=== PATIENT | female | born 1990 | race Caucasian/White ===

== ENCOUNTER 2017-01-25 11:55 | Outpatient (CLI) | payer OTHER ==
[~2017-01-25 11:55] MED LIST changes: -DOXY100C2 PO; -LINA1CAP2 PO; -MTR600X PO; -PANT40TA PO; -PRT/20 PO
[2017-01-25] MEDS ORDERED: LACTATED RINGER'S 1000ML 1,000 ML IV SCH (12:26)
[2017-01-25 13:05] LABS: BASO % 0.1 %; BASO ABS # 0.02 K/uL (0-0.2); EOS % 0.3 %; HEMATOCRIT 38.7 % (37-47); IG% 0.4 %; LYMPH % 12.8 %; LYMPH ABS # 1.95 K/uL (1.2-3.4); MEAN CELL VOLUME 80.8 fL (80-100); MEAN CORPUSCULAR HEMOGLOBIN 27.1 pg (25-34); MEAN PLATELET VOLUME 10.9 fL (7.4-10.4); MONO % 7.6 %; NEUT % 78.8 %; PLATELET COUNT 223 K/uL (130-400); RED BLOOD COUNT 4.79 M/uL (4.2-5.4); WHITE BLOOD COUNT 15.19 K/uL (4.8-10.8)
[2017-01-25 13:14] LABS: INR 0.9 (0.9-1.1); PROTHROMBIN TIME (PATIENT) 9.8 SECONDS (9.0-12.0)
[2017-01-25 13:25] LABS: COMPLETE YES; MEAN CORPUSCULAR HGB CONC 33.6 g/dl (32-36)
[2017-01-25 13:26] LABS: ALT/SGPT 15 U/L (12-78); AST/SGOT 25 U/L (15-37); BLOOD UREA NITROGEN 10 mg/dl (7-18); BUN/CREATININE RATIO 17.4 (10-20); CALCIUM 8.8 mg/dl (8.5-10.1); CARBON DIOXIDE 21 mmol/L (21-32); CHLORIDE 109 mmol/L (98-107); CREATININE 0.57 mg/dl (0.60-1.20); GLUCOSE 77 mg/dl (70-99); SODIUM 141 mmol/L (136-145); URIC ACID 5.5 mg/dl (2.6-7.2)
[2017-01-25] MEDS ORDERED: PRT/20 PO (14:58)
[2017-01-31] MEDS ORDERED: MTR600X PO (07:59)
== END 2017-01-25 14:53 | disposition home or self-care (01) ==
LOC: C.OPB 11:55 → C.LD 11:55 → C.OPB 14:53
PROVIDERS: ATTEND Obstetrics & Gynecology
DX: O99.89 Other specified diseases and conditions complicating pregnancy, childbirth and the puerperium (principal); R03.0 Elevated blood-pressure reading, without diagnosis of hypertension; O99.213 Obesity complicating pregnancy, third trimester; Z3A.36 36 weeks gestation of pregnancy

== ENCOUNTER → 2017-01-25 | Outpatient (CLI) | payer OTHER ==
[~2017-01-25] MED LIST: DOXY100C2 PO; LINA1CAP2 PO; MTR600X PO; NITR-5 PO; ONDA4TAB46 PO; PANT40TA PO; PRENTAB26 PO; PRT/20 PO
[2017-01-26 16:09] LABS: URINE TOTAL PROTEIN 5.8 mg/dl (0-11.9)
--- NOTE | 2017-03-30 06:12 | CODING QUERY NO DIAGNOSIS ---
TREATMENT RENDERED WITHOUT A DIAGNOSIS To promote full compliance with coding requirements relating to patient care, physician participation is requested in all cases of hcc coders uncertainty. Please assist us with providing a diagnosis/symptom for the test(s) below: A diagnosis/symptom was not documented on your Order. A valid diagnosis/symptom is required to bill all insurances. Please remember that we are unable to code a diagnosis of rule out, probable, possible, questionable, or suspected. Tests that require a diagnosis: DOS: 01/26/17 * TOTAL PROTEIN 24 HOUR URINE DIAGNOSIS: Provider Signature: Date: Thank you Lynsey Grimaldo [employer] Once completed, please kindly fax back to [phone] For questions please call [phone]
== END | disposition home or self-care (01) ==
LOC: C.LABSPEC 09:34
PROVIDERS: ATTEND Obstetrics & Gynecology
DX: Z01.89 Encounter for other specified special examinations (principal)

== ENCOUNTER 2017-01-27 22:59 | Inpatient (IN) | payer OTHER ==
[~2017-01-27] VITALS: Ht 175.3 cm; Wt 131.8 kg
[~2017-01-27 22:59] MED LIST changes: -NITR-5 PO; -ONDA4TAB46 PO; +PRT/20 PO
[2017-01-27] MEDS ORDERED: LACTATED RINGER'S 1000ML 1,000 ML IV PRN (23:04)
[2017-01-27] MEDS ORDERED: DINOPROSTONE 10 MG INSERT PV STA (23:07)
[2017-01-27 23:33] LABS: HEMATOCRIT 34.9 % (37-47); MEAN CELL VOLUME 80.4 fL (80-100); MEAN CORPUSCULAR HEMOGLOBIN 28.3 pg (25-34); MEAN CORPUSCULAR HGB CONC 35.2 g/dl (32-36); PLATELET COUNT 216 K/uL (130-400); RED BLOOD COUNT 4.34 M/uL (4.2-5.4); WHITE BLOOD COUNT 14.81 K/uL (4.8-10.8)
[2017-01-27] MEDS ORDERED: PANT40TA PO (23:43)
[2017-01-27 23:44] VITALS: Ht 175.3 cm; Wt 131.8 kg
[2017-01-27 23:57] LABS: BUN/CREATININE RATIO 12.6 (10-20); CALCIUM 8.7 mg/dl (8.5-10.1); CREATININE 0.84 mg/dl (0.60-1.20); POTASSIUM 3.7 mmol/L (3.5-5.1)
[2017-01-28] LABS: ALB/GLOB RATIO 0.7 (0.9-2)
--- NOTE | 2017-01-28 00:50 | HISTORY & PHYSICAL EXAMINATION ---
DATE OF ADMISSION: 01/27/2017 HISTORY OF PRESENT ILLNESS: The patient is a 26-year-old, G1, P0, due date is 02/16/2017, making it 37 weeks' and 1 day today. The patient is here for admission because of mild preeclampsia. She was seen for elevated blood pressures. A 24-hour urine was done 375 mg. Decision was therefore made to admit the patient for induction of labor. COURSE: Has been unremarkable except for elevated blood pressure and preeclampsia. Today, on admission, she complains of headache. She however has no nausea, shortness of breath, chills or visual changes. She also does not have any right upper quadrant pain on admission today. Blood pressure on admission was in the 140s/90s. She has no recorded blood pressure greater than 160/105 since admission. LABORATORIES: Blood type B positive, antibody negative. GBS is positive. GC chlamydia is negative, rubella immune. PAST MEDICAL HISTORY: The patient has a history of infectious mono as well as fracture of bones. PAST SURGICAL HISTORY: The patient has a history of tonsillectomy and cholecystectomy as well as a colonoscopy. ALLERGIES: No known drug allergies. SOCIAL HISTORY: The patient denies tobacco, drug or alcohol use. PHYSICAL EXAMINATION: GENERAL: Well-developed, well-nourished and obese white female in no acute distress. HEART: S1, S2, regular rhythm and rate. LUNGS: Clear to auscultation bilaterally. ABDOMEN: Gravid. Bedside ultrasound shows cephalic presentation. EXTREMITIES: No cyanosis, clubbing or edema. ASSESSMENT AND PLAN: A 26-year-old, G1, P0 with mild preeclampsia. The patient has been admitted for induction because of preeclampsia. On admission she has headaches, but no other preeclampsia symptoms. She denies headache, visual changes, right upper quadrant pain or shortness of breath. Cervical exam is fingertip, thick and closed; therefore started induction with cervical ripening. [facility]
[2017-01-28] MEDS ORDERED: LACTATED RINGER'S 1000ML 1,000 ML IV PRN (11:40)
[2017-01-28] MEDS ORDERED: LACTATED RINGER'S 1000ML 500 ML IV PRN ×2 (11:40→19:08)
[2017-01-28] MEDS ORDERED: OXYTOCIN 30 UNITS/500ML NSS IV PRN (11:45)
[2017-01-28] MEDS ORDERED: PENICILLIN G POTASSIUM IV 6 MU in DEXTROSE 5% 250ML 250 ML IV ONE (11:45)
[2017-01-28] MEDS: LACTATED RINGER'S 1000ML 1,000 ML IV SCH ×2 (12:41→18:30)
[2017-01-28] MEDS: PENICILLIN G POTASSIUM IV 3 MU in DEXTROSE 5% 100ML 100 ML IV PRN ×2 (16:38→20:41)
[2017-01-28] MEDS ORDERED: EpHEDrine SULFATE INJ 50 MG/ML AMP ONE (17:44)
[2017-01-28] MEDS ORDERED: BUPIVACAINE 0.25% 30 ML VIAL ONE (17:44)
[2017-01-28] MEDS ORDERED: FENTANYL CITRATE INJ 50 MCG/1 ML 2 ML VIAL ONE (17:45)
[2017-01-28] MEDS ORDERED: FENTANYL 2MCG/ML ROPIV 1.25MG/ML 100ML BAG EPI ONE (17:46)
[2017-01-28] MEDS ORDERED: NALOXONE HCL INJ 1 MG in SODIUM CHLORIDE 0.9% 1000ML 1,000 ML IV PRN (19:08)
[2017-01-28] MEDS ORDERED: DiphenhydrAMINE HCL 50 MG/ML VIAL IV PRN (19:15)
[2017-01-28] MEDS ORDERED: EpHEDrine SULFATE INJ 50 MG/ML AMP IV PRN (19:15)
[2017-01-28] MEDS ORDERED: NALBUPHINE HCL INJ 10 MG/ML AMP IV PRN (19:15)
[2017-01-28] MEDS ORDERED: NALOXONE HCL INJ 0.4 MG/1 ML VIAL/CARP IV PRN (19:15)
[2017-01-28] MEDS: FENTANYL 2MCG/ML ROPIV 1.25MG/ML 100ML BAG EPI PRN (20:38)
[2017-01-29] MEDS: PENICILLIN G POTASSIUM IV 3 MU in DEXTROSE 5% 100ML 100 ML IV PRN ×3 (00:36→08:03)
[2017-01-29] MEDS: LACTATED RINGER'S 1000ML 1,000 ML IV SCH (01:41)
[2017-01-29] MEDS: FENTANYL 2MCG/ML ROPIV 1.25MG/ML 100ML BAG EPI PRN ×4 (03:15→07:57)
[2017-01-29] MEDS ORDERED: LACTATED RINGER'S 1000ML 250 ML IV STA (06:39)
[2017-01-29] MEDS ORDERED: NURSING VERBAL MED ORDER ONE ×2 (06:45)
[2017-01-29] MEDS ORDERED: BENZOCAINE 20% AER SPR 82.5 GM CAN EXT PRN (09:00)
[2017-01-29] MEDS ORDERED: SUPERCREAM 0.870 % 15GM JAR EXT PRN (09:00)
[2017-01-29] MEDS ORDERED: HYDROCORTISONE ACETATE 25 MG SUPP PR PRN (09:00)
[2017-01-29] MEDS ORDERED: DIPHTHERIA/TETANUS/PERTUSSIS 0.5 ML SYR/VIAL IM. ONE (09:00)
[2017-01-29] MEDS ORDERED: ACETAMINOPHEN/CODEINE 300/30MG TAB PO PRN ×2 (09:00)
[2017-01-29] MEDS ORDERED: ACETAMINOPHEN 325 MG TAB PO PRN (09:00)
[2017-01-29] MEDS ORDERED: LANOLIN OINT EXT PRN ×2 (09:00)
[2017-01-29] MEDS ORDERED: OXYTOCIN 30 UNITS/500ML NSS IV PRN (09:00)
[2017-01-29] MEDS ORDERED: MEASLES, MUMPS & RUBELLA VIRUS VIAL SQ. ONE (09:00)
--- NOTE | 2017-01-29 10:27 | DELIVERY SUMMARY ---
DATE OF OPERATION: 01/29/2017 TIME OF DELIVERY: 08:22 a.m. TIME OF DELIVERY OF PLACENTA: 08:40 a.m. DETAILS OF DELIVERY: The patient was found to be fully dilated and desired to push. She pushed for about 40 minutes and delivered the head without difficulty. Shoulders were delivered with minimal traction and baby was handed off to the mother where mouth and nose were suctioned. Cord was clamped x2 and cut. It was a 3-vessel cord. Then cord blood was obtained. The vagina and perineum were checked for lacerations. There was a second degree perineal laceration at the posterior fourchette, which was confirmed with a rectal exam. Good sphincter tone was noted and gloves were changed. This laceration was repaired with 2-0 Vicryl in a running locked fashion bringing the vaginal mucosa together, perineal body muscles and bulbocavernosus muscles together and the skin in a subcuticular fashion. Excellent hemostasis was achieved. Rectal exam was repeated and no sutures were felt and again good sphincter tone was noted. Gloves were changed and the rest of the vagina was intact. The the placenta was found in the vagina and delivered spontaneously as intact and complete. Uterus was explored and found to be empty. Lower segment was cleared of all clots and debris. Fundus was firm. EBL was 500. Mother and baby tolerated the procedure well. Baby was a viable female , Apgars 8/9. Weight is pending. No complications happened. I was present during whole procedure. At the end of the procedure, sponge, needle and instrument counts were correct x2. I attest to the content of the Intraoperative Record and any orders documented therein. Any exceptions are noted below. TERESITA
[2017-01-29] MEDS: IBUPROFEN 600 MG TAB PO PRN ×3 (10:45→21:10)
--- NOTE | 2017-01-29 10:58 | Anesthesia Procedure Note ---
Anesthesia Epidural Removal Nt Date & Time Jan 29, 2017 at 10:57 Notes Mental Status: alert / awake / arousable, participated in evaluation Nausea / Vomiting: adequately controlled Pain: adequately controlled Airway Patency, RR, SpO2: stable & adequate BP & HR: stable & adequate Hydration State: stable & adequate Neuraxial Anesthesia: was administered Anesthetic Complications: no major complications apparent, pt satisfied with anesthetic care Epidural: removed without complications, with tip intact Notes: Pt resting comfortably in bed. Denies any discomfort. Epidural removed without complications/ tip intact. Pt tolerated well.
[2017-01-29 11:15] VITALS: BP 147/95; PULSE 104; TEMP 36.8; O2SAT 98
[2017-01-29 15:45] VITALS: BP 124/79; PULSE 87; TEMP 36.6
[2017-01-29 19:35] VITALS: BP 137/86; PULSE 91; TEMP 36.9
[2017-01-29] MEDS: DOCUSATE SODIUM 100 MG CAP PO SCH (21:10)
[2017-01-29 23:45] VITALS: BP 136/89; PULSE 87; TEMP 36.8
[2017-01-30] MEDS: IBUPROFEN 600 MG TAB PO PRN ×6 (03:47→23:59)
[2017-01-30 04:30] VITALS: BP 133/86; PULSE 96; TEMP 36.7
[2017-01-30 07:38] LABS: HEMATOCRIT 28.8 % (37-47); MEAN CELL VOLUME 81.4 fL (80-100); MEAN CORPUSCULAR HEMOGLOBIN 27.4 pg (25-34); MEAN CORPUSCULAR HGB CONC 33.7 g/dl (32-36); MEAN PLATELET VOLUME 10.7 fL (7.4-10.4); PLATELET COUNT 192 K/uL (130-400); RED BLOOD COUNT 3.54 M/uL (4.2-5.4)
[2017-01-30] MEDS: FERROUS SULFATE 325 MG TAB PO SCH (08:11)
[2017-01-30] MEDS: PRENATAL VITAMIN TAB PO SCH (08:11)
[2017-01-30] MEDS: DOCUSATE SODIUM 100 MG CAP PO SCH ×2 (08:11→20:11)
[2017-01-30 08:12] LABS: BUN/CREATININE RATIO 17.9 (10-20); CALCIUM 8.2 mg/dl (8.5-10.1); CREATININE 0.84 mg/dl (0.60-1.20); POTASSIUM 3.6 mmol/L (3.5-5.1)
[2017-01-30 08:14] LABS: ALB/GLOB RATIO 0.6 (0.9-2)
[2017-01-30 08:20] VITALS: BP 143/92; PULSE 86; TEMP 36.6; O2SAT 98
--- NOTE | 2017-01-30 09:35 | OB/GYN Progress Note ---
STEWARD/STEWARDESS DECK Progress Note Date of Service Jan 30, 2017. Subjective conversation w/ patient, physical exam Ambulation: ambulating normally Voiding: no voiding problems Passing Gas: Yes Diet Tolerance: Regular Diet Lochia: Moderate Feeding Type: Breast Feeding Review of Systems Constitutional: No chills, No fatigue, No fever, No problem reported, No sweats , No weakness, No weight loss Respiratory: No cough, No dyspnea at rest, No dyspnea on exertion, No hemoptysis, No problem reported, No shortness of breath, No sputum, No wheezing Cardiac: No PND, No chest pain, No claudication, No edema, No orthopnea, No palpitations, No problem reported Breast: No breast lump, No breast pain, No change in shape, No nipple discharge , No problem reported, No see HPI Abdomen: No GI bleeding, No constipation, No diarrhea, No nausea, No pain, No problem reported, No vomiting Female : No abnormal vaginal bleeding, No dysuria, No hematuria, No incontinence, No problem reported, No see HPI, No urinary frequency, No vaginal discharge Objective Vital Signs Date Time Temp Pulse Resp B/P Pulse Ox O2 Delivery O2 Flow Rate FiO2 01/30/17 04:30 36.7 96 20 133/86 Room Air 01/29/17 23:45 Room Air 01/29/17 23:45 36.8 87 20 136/89 Room Air 01/29/17 19:35 36.9 91 20 137/86 Room Air 01/29/17 15:45 Room Air 01/29/17 15:45 36.6 87 16 124/79 Room Air 01/29/17 11:15 Room Air 01/29/17 11:15 36.8 104 20 147/95 98 Room Air Physical Exam General Appearance: WELL-APPEARING, WD/WN Respiratory/Chest: chest non-tender, lungs clear, normal breath sounds, no respiratory distress, no accessory muscle use Cardiovascular: regular rate, rhythm, no edema, no gallop, no JVD, no murmur Abdomen: normal bowel sounds, non tender, soft, no organomegaly, no pulsatile mass Fundus: Firm Extremities: normal range of motion, non-tender, normal inspection, no pedal edema, no calf tenderness Laboratory Results Last 24 Hours Test 01/30/17 07:20 White Blood Count 15.20 K/uL Red Blood Count 3.54 M/uL Hemoglobin 9.7 g/dL Hematocrit 28.8 % Mean Corpuscular Volume 81.4 fL Mean Corpuscular Hemoglobin 27.4 pg Mean Corpuscular Hemoglobin Concent 33.7 g/dl RDW Standard Deviation 42.8 fL RDW Coefficient of Variation 14.5 % Platelet Count 192 K/uL Mean Platelet Volume 10.7 fL Sodium Level 143 mmol/L Potassium Level 3.6 mmol/L Chloride Level 111 mmol/L Carbon Dioxide Level 23 mmol/L Anion Gap 9.0 mmol/L Blood Urea Nitrogen 15 mg/dl Creatinine 0.84 mg/dl Est Creatinine Clear Calc Drug Dose 146.8 ml/min Estimated GFR () 110.4 Estimated GFR (Non- 95.3 BUN/Creatinine Ratio 17.9 Random Glucose 75 mg/dl Calcium Level 8.2 mg/dl Total Bilirubin 0.2 mg/dl Aspartate Amino Transf (AST/SGOT) 28 U/L Alanine Aminotransferase (ALT/SGPT) 13 U/L Alkaline Phosphatase 82 U/L Total Protein 5.1 gm/dl Albumin 2.0 gm/dl Globulin 3.1 gm/dl Albumin/Globulin Ratio 0.6 Assessment and Plan Day Number: 1 Continue Routine Care: PPD #1 pt doing well no complaints d/c home tomorrow
[2017-01-30 15:30] VITALS: BP 139/87; PULSE 87; TEMP 37; O2SAT 98; O2SAT 99
[2017-01-30] MEDS ORDERED: BISACODYL 5 MG TABEC PO SCH (20:00)
[2017-01-31] VITALS: BP 143/91; PULSE 83; TEMP 36.8; O2SAT 100
[2017-01-31] MEDS: IBUPROFEN 600 MG TAB PO PRN (05:45)
[2017-01-31] MEDS ORDERED: BISACODYL 10 MG SUPP PR PRN (07:00)
[2017-01-31 07:30] VITALS: BP 139/86; PULSE 80; TEMP 36.8
[2017-01-31] MEDS ORDERED: MTR600X PO (07:59)
--- NOTE | 2017-01-31 07:59 | OB/GYN Progress Note ---
COLLECTOR OF [employer]QUARI[employer] SPECIMENS Progress Note Date of Service Jan 31, 2017. Subjective conversation w/ patient, physical exam Ambulation: ambulating normally Voiding: no voiding problems Passing Gas: Yes Diet Tolerance: Regular Diet Lochia: Small Feeding Type: Breast Feeding Pain: 2/10 Notes: Doing well, no concerns. Denies MTZ, changes in vision or abdominal pain. Pain well controlled. Lochia minimal. Would like to go home today. Objective Vital Signs Date Time Temp Pulse Resp B/P Pulse Ox O2 Delivery O2 Flow Rate FiO2 01/31/17 00:00 36.8 83 16 143/91 100 Room Air 01/31/17 00:00 100 Room Air 01/30/17 15:30 98 Room Air 01/30/17 15:30 37.0 87 18 139/87 99 Room Air 01/30/17 08:20 98 Room Air 01/30/17 08:20 36.6 86 16 143/92 98 Room Air Physical Exam General Appearance: WELL-APPEARING Respiratory/Chest: chest non-tender, lungs clear Cardiovascular: regular rate, rhythm Abdomen: normal bowel sounds, soft Fundus: Firm Extremities: normal range of motion, non-tender, + pedal edema Assessment and Plan Day Number: 2 Continue Routine Care: -D/C home today -F/U in 6 weeks.
--- NOTE | 2017-01-31 08:00 | Discharge Instructions ---
Discharge Instructions Date of Service Jan 31, 2017. Admission Reason for Admission: IUP Discharge Discharge Diagnosis / Problem: Vaginal Delivery Discharge Goals Goal(s): Routine recovery after delivery Medications Continue Dispensed Medications: supercream, dermaplast, tucks, lansinoh Activity Recommendations Activity Limitations: per Instructions/Follow-up section . Instructions / Follow-Up Instructions / Follow-Up ACTIVITY RECOMMENDATIONS: * Gradual return to full activity over the next 2-3 weeks. * No lifting - nothing heavier than baby over the next 2-3 weeks. * Do not engage in vigorous exercise, sexual activity or sports until cleared by your physician. * Do not drive or operate any motorized equipment until cleared by your physician. * You may shower/bathe daily. BREAST CARE: If you are not breast feeding: * Wear a supportive bra 24 hours a day for one to two weeks. * Avoid stimulating your breasts and nipples as much as possible during the first few weeks after delivery. * When taking a shower, have the warm water hit your back, not breasts. * When your breasts feel full, apply ice packs. Usually three to four times a day helps ease the discomfort. * Take a mild pain medication (Tylenol/Motrin) when you are uncomfortable. If breast feeding: * Use breast milk to lubricate nipples. Lansinoh cream may be used for sore nipples. You do not need to remove cream prior to breast feeding. If using a different brand of cream, check the label for directions regarding removal of cream prior to nursing. * Wear a supportive bra. * If having problems with breasts or breast feeding, call a micro[employer] consultant or your health care provider. EPISIOTOMY CARE: After delivery, if you have an episiotomy (stitches), the following steps will ease discomfort and aid healing. * For the first 24 hours after delivery, place ice packs next to your episiotomy to help reduce swelling. * After the first 24 hour-period, sitz baths, either portable or in the tub, are suggested. A shower with a shower arm sprayed over the episiotomy may be comforting. * Diane care should be done after each voiding and bowel movement. Squirt warm water from a plastic bottle over the perineum (region of the body between the anus and urinary opening) and pat dry. * Use Dermoplast to ease discomfort. Shake container. [place] directly over the episiotomy. * Place a Tucks on a clean sanitary pad next to your episiotomy. OVER THE COUNTER MEDICATION: * For discomfort or pain, you may use Acetaminophen (Tylenol), Ibuprofen (Advil ), or Naproxen (Aleve) following the package directions. * For constipation you may use Colace following the package directions. SPECIAL CARE INSTRUCTIONS: When you are discharged from the hospital, it is important for you to follow the instructions listed below: * During the first week at home, you should be able to care for yourself and your baby. In addition, the usual light household activities are encouraged. * Limit your activities to the way you feel. Do not try to clean the house or move furniture. Be sensible. * If you actively engage in sports and have done so up until the time of your delivery, you may resume these activities as soon as you feel able. This may take up to one month or even longer. Use good judgment. * Continue to take your vitamins for at least six weeks after the of your baby. * Your diet need not be limited unless you were on a special diet before your delivery. Breast-feeding mothers need around 2500 calories per day and at least 64-80 ounces of fluid per day (8 to 10 glasses). * You should eat foods from the four major food groups. Crash diets or fad diets are to be avoided. Eating lean meats, fresh fruits and vegetables, low-fat dairy products, high fiber foods and a regular exercise program, will help you get back to your pre- weight without putting your health at risk. * Constipation is sometimes a problem after delivery. Take a mild laxative as needed. If breast feeding, Milk of Magnesia is acceptable to use. You may use a suppository or Fleets enema if no episiotomy. * A daily shower or tub bath is suggested. Be sure to thoroughly and gently dry the perineum. * A bloody vaginal discharge will usually continue until around four weeks post . A small amount of bleeding may continue for as long as six weeks. Vaginal discharge changes from the bright red bleeding after delivery to pink then brownish and finally yellowish-pink before becoming white and disappearing. * Bleeding may increase with activity. Your first period may come in 4-8 weeks. If you are breast feeding, your period may be delayed even longer. * [place] (sex) can begin whenever both you and your partner feel comfortable and do not have any form of genital infection. It is recommended that you wait until after your return appointment and discuss with your physician. If you have questions, please talk to your health care practitioner. A condom should be used to prevent infection and . * Foreplay, gentle intercourse and lubrication is very important the first several times to prevent pain. A water-based lubricant such as K-Y jelly or Astroglide may be used. * Tampons may be used six weeks after delivery. * Douching should be avoided for 6 weeks after delivery. * If you have RH negative blood and your baby is RH positive, you will receive RHOGAM by injection prior to discharge. The nurse will give you a card to keep with you that has the date and place that you received RHOGAM after delivery. * During your care, you had a Rubella screen done to check for the presence of rubella antibodies in your blood. If your test was negative, you will receive a Rubella vaccine prior to discharge. This vaccine may cause a fever, soreness at the injection site and flu-like symptoms. If these symptoms persist, notify your health care practitioner. is not advised for three months after a Rubella vaccine. There is a higher chance of having a baby with defects if conceived within three months of getting the vaccine. * If you were discharged 24 hours from delivery or before 48 hours: Visiting nurses will come to your home 48 hours after discharge to assess you and your baby. The visiting nurse will meet with you while you are in the hospital to arrange a time and get directions to your home. * Verbalizes understanding of car seat law as reviewed with patient nursing. * Car Seat hand-out given and reviewed with patient by nursing. * Shaken baby information reviewed with patient by nursing. Call you doctor if: * Heavy bleeding (saturating several pads an hour) or passing clots the size of your fist. * A fever >101 degrees F (38.3 degrees C) on two occasions four hours apart and/or chills. * Unusual pain in the pelvic or vaginal areas. * "Baby Blues" lasting longer than two weeks. If you have any questions or concerns, call your health care practitioner at . FOLLOW-UP VISIT: * Please call the office at to schedule a 6 week examination. It is important you keep this appointment. * It is important for you to make arrangements for either yearly or twice yearly check-ups thereafter. Current Hospital Diet Patient's current hospital diet: Regular OB Diet Discharge Diet Recommended Diet: Regular OB Diet Pending Studies Studies pending at discharge: no Medical Emergencies . Who to Call and When: Medical Emergencies: If at any time you feel your situation is an emergency, please call 911 immediately. . Non-Emergent Contact Non-Emergency issues call your: Primary Care Provider, Business Support . . "Provider Documentation" section prepared by Pedro Summers. VTE Core Measure Inpt VTE Proph given/why not?: Treatment not indicated
[2017-01-31] MEDS: FERROUS SULFATE 325 MG TAB PO SCH (08:12)
[2017-01-31] MEDS: PRENATAL VITAMIN TAB PO SCH (08:12)
[2017-01-31] MEDS: DOCUSATE SODIUM 100 MG CAP PO SCH (08:12)
[2017-01-31 11:00] VITALS: BP_DIAS 86; PULSE 80; TEMP 36.8
== END 2017-01-31 11:15 | disposition home or self-care (01) | DRG 774 ==
LOC: C.LD 22:59 → C.OBG 01-29 13:04
PROVIDERS: ADMIT Obstetrics & Gynecology; ATTEND Obstetrics & Gynecology
PROC: 3E033VJ Introduction of Other Hormone into Peripheral Vein, Percutaneous Approach (ICD-10-PCS; 2017-01-28)
PROC: 10E0XZZ Delivery of Products of Conception, External Approach (ICD-10-PCS; principal; 2017-01-29)
PROC: 0KQM0ZZ Repair Perineum Muscle, Open Approach (ICD-10-PCS; principal; 2017-01-29)
DX: O14.03 Mild to moderate pre-eclampsia, third trimester (principal); O70.1 Second degree perineal laceration during delivery; Z3A.37 37 weeks gestation of pregnancy; Z37.0 Single live birth

== ENCOUNTER 2017-04-22 21:21 | Emergency (ER) | payer OTHER ==
[~2017-04-22] VITALS: Ht 175.3 cm; Wt 114.2 kg
[~2017-04-22 21:21] MED LIST changes: +MTR600X PO; +PANT40TA PO; -PRT/20 PO
[2017-04-22 21:25] VITALS: TEMP 36.7; Ht 175.3 cm; Wt 114.2 kg
[2017-04-22] MEDS ORDERED: SODIUM CHLORIDE 0.9% 1000ML 1,000 ML IV ONE (21:43)
[2017-04-22] MEDS ORDERED: SODIUM CHLORIDE 0.9% 1000ML 1,000 ML IV STA (21:43)
[2017-04-22] MEDS ORDERED: LINA1CAP2 PO (22:04)
[2017-04-22 22:09] LABS: URINE APPEARANCE CLEAR (CLEAR); URINE BILIRUBIN NEG (NEG); URINE COLOR YELLOW; URINE NITRITE NEG (NEG); URINE SPECIFIC GRAVITY 1.023 (1.000-1.030); UROBILINOGEN NEG (NEG)
[2017-04-22 22:12] LABS: BASO % 0.3 %; BASO ABS # 0.04 K/uL (0-0.2); COMPLETE YES; EOS % 0.9 %; HEMATOCRIT 42.5 % (37-47); IG% 0.2 %; LYMPH % 28.5 %; LYMPH ABS # 4.01 K/uL (1.2-3.4); MANUAL MICROSCOPIC REQUIRED? NO; MEAN CELL VOLUME 80.8 fL (80-100); MEAN CORPUSCULAR HEMOGLOBIN 26.8 pg (25-34); MEAN CORPUSCULAR HGB CONC 33.2 g/dl (32-36); MEAN PLATELET VOLUME 10.3 fL (7.4-10.4); MONO % 10.2 %; NEUT % 59.9 %; PLATELET COUNT 315 K/uL (130-400); RED BLOOD COUNT 5.26 M/uL (4.2-5.4); REVIEW REQ? NO; WHITE BLOOD COUNT 14.07 K/uL (4.8-10.8)
[2017-04-22 22:20] LABS: ALT/SGPT 33 U/L (12-78); BLOOD UREA NITROGEN 12 mg/dl (7-18); BUN/CREATININE RATIO 13.8 (10-20); CARBON DIOXIDE 25 mmol/L (21-32); CHLORIDE 107 mmol/L (98-107); CREATININE 0.85 mg/dl (0.60-1.20); GLUCOSE 80 mg/dl (70-99); POTASSIUM 3.7 mmol/L (3.5-5.1); SODIUM 142 mmol/L (136-145)
[2017-04-22 22:21] LABS: CALCIUM 9.3 mg/dl (8.5-10.1)
[2017-04-22 22:24] LABS: ALKALINE PHOSPHATASE 79 U/L (45-117); AST/SGOT 22 U/L (15-37)
[2017-04-22 22:28] LABS: PREG INTERNAL NEGATIVE QC NEG CLEAR BACKGROUND; PREG INTERNAL POSITIVE QC POS CONTROL LINE
[2017-04-22] MEDS ORDERED: DOXY100C2 PO (23:25)
[2017-04-22] MEDS ORDERED: DOXYCYCLINE HYCLATE 100 MG CAP PO ONE (23:30)
[2017-04-22 23:40] VITALS: BP 127/86; PULSE 89; O2SAT 98
--- NOTE | 2017-04-22 23:56 | EMERGENCY ROOM VISIT NOTE ---
History Report prepared by [place]: Pedro Morrell Under the Supervision of: Dr. Sacha Cabrera M.D. First contact with patient: 21:28 Chief Complaint: PELVIC PAIN Stated Complaint: CRAMPING,VAGINAL PAIN History of Present Illness The patient is a 26 year old female who presents to the Emergency Room with complaints of constant vaginal discomfort beginning about 10 days ago. The patient states that she also has lower back pain, cramping abdominal pain, white and normal vagina discharge, and nausea. She denies vaginal bleeding, trauma, fever, chills, and vomiting. She reports that she was having sexual intercourse with her a week ago, and she was in pain the entire time. The patient states that she is 3 months , and the last time she saw her BARREL PAINTER was 6 weeks . She reports that she had a slight vaginal tear during , and when she followed up with her BARREL PAINTER, her uterus had not returned to normal size. The patient notes that she called her BARREL PAINTER this morning; they said she could wait until Monday for an appointment, or she could go to the ER. She states that she has a history of preeclampsia and a cholecystectomy. Source of History: patient Onset: about 10 days ago Position: other (vagina) Quality: other (discomfort) Timing: constant Associated Symptoms: + nausea, + abdominal pain, + back pain, No fevers, No chills, No vomiting Note: Associated symptoms: white and normal vagina discharge She denies vaginal bleeding and trauma Review of Systems See HPI for pertinent positives & negatives. A total of 10 systems reviewed and were otherwise negative. Past Medical & Surgical Medical Problems: (1) Elevated blood pressure affecting in third trimester, antepartum (2) Gastroesophageal reflux disease (3) Gastroparesis (4) Obesity affecting in third trimester (5) Preeclampsia Old medical records were reviewed. Nurse's notes were reviewed and I agree with. Family History Cancer Heart disease Hypertension Social History Smoking Status: Current Every Day Smoker Alcohol Use: occasionally Drug Use: none Marital Status: single Occupation Status: employed Current/Historical Medications Scheduled Doxycycline Hyclate (Vibramycin), 100 MG PO BID Linaclotide (Linzess), 290 MCG PO DAILY Pantoprazole (Protonix), 40 MG PO DAILY Allergies Coded Allergies: No Known Allergies (Unverified , 01/30/17) Physical Exam Vital Signs Date Time Temp Pulse Resp B/P (MAP) Pulse Ox O2 Delivery O2 Flow Rate FiO2 04/22/17 23:40 89 18 127/86 98 04/22/17 21:25 36.7 96 18 131/93 97 Room Air Physical Exam General: Well developed well nourished in no acute distress, breathing comfortably on room air. Normal speech, non-ill appearing, young female. HEENT: Normal cephalic atraumatic. Pupils are equal round and reactive to light. Extraocular movements are intact. Oropharynx is pink with moist mucous membranes. No swelling of the mouth lips or tongue. Neck: Supple with a midline trachea. No meningeal signs or stiffness, no JVD or bruits. No Stridor. Chest: Clear to auscultation bilaterally. No wheezes or rhonchi. No increased work of breathing. Heart: regular rate and rhythm. Abdomen: Soft, nondistended without rebound guarding or rigidity. Mild suprapubic tenderness to palpation Extremities: No cyanosis clubbing or edema. No calf tenderness or assymetry Spine/Back. Non tender to palpation. No CVA tenderness Skin: Good turgor without rashes. Neurologic exam: Cranial nerves two through 12 are intact. Motor and sensation are intact and symmetrical throughout. Pelvic (performed in the presence of a female nurse telephone operator receptionist): Normal external genitalia, no cervical lesions or discharge, minimal tenderness to palpation of the cervix Medical Decision & Procedures Laboratory Results 04/22/17 21:50 Red Blood Count 5.26, Mean Corpuscular Volume 80.8, Mean Corpuscular Hemoglobin 26.8, Mean Corpuscular Hemoglobin Concent 33.2, Mean Platelet Volume 10.3, Neutrophils (%) (Auto) 59.9, Lymphocytes (%) (Auto) 28.5, Monocytes (%) (Auto) 10.2, Eosinophils (%) (Auto) 0.9, Basophils (%) (Auto) 0.3, Neutrophils # (Auto ) 8.43, Lymphocytes # (Auto) 4.01, Monocytes # (Auto) 1.44, Eosinophils # (Auto ) 0.12, Basophils # (Auto) 0.04 04/22/17 21:50 Test 04/22/17 21:50 White Blood Count 14.07 K/uL (4.8-10.8) Red Blood Count 5.26 M/uL (4.2-5.4) Hemoglobin 14.1 g/dL (12.0-16.0) Hematocrit 42.5 % (37-47) Mean Corpuscular Volume 80.8 fL (80-100) Mean Corpuscular Hemoglobin 26.8 pg (25-34) Mean Corpuscular Hemoglobin Concent 33.2 g/dl (32-36) Platelet Count 315 K/uL (130-400) Mean Platelet Volume 10.3 fL (7.4-10.4) Neutrophils (%) (Auto) 59.9 % Lymphocytes (%) (Auto) 28.5 % Monocytes (%) (Auto) 10.2 % Eosinophils (%) (Auto) 0.9 % Basophils (%) (Auto) 0.3 % Neutrophils # (Auto) 8.43 K/uL (1.4-6.5) Lymphocytes # (Auto) 4.01 K/uL (1.2-3.4) Monocytes # (Auto) 1.44 K/uL (0.11-0.59) Eosinophils # (Auto) 0.12 K/uL (0-0.5) Basophils # (Auto) 0.04 K/uL (0-0.2) RDW Standard Deviation 40.7 fL (36.4-46.3) RDW Coefficient of Variation 13.7 % (11.5-14.5) Immature Granulocyte % (Auto) 0.2 % Immature Granulocyte # (Auto) 0.03 K/uL (0.00-0.02) Urine Color YELLOW Urine Appearance CLEAR (CLEAR) Urine pH 5.0 (4.5-7.5) Urine Specific Margie 1.023 (1.000-1.030) Urine Protein NEG (NEG) Urine Glucose (UA) NEG (NEG) Urine Ketones NEG (NEG) Urine Occult Blood NEG (NEG) Urine Nitrite NEG (NEG) Urine Bilirubin NEG (NEG) Urine Urobilinogen NEG (NEG) Urine Leukocyte Esterase NEG (NEG) Anion Gap 10.0 mmol/L (3-11) Est Creatinine Clear Calc Drug Dose 134.1 ml/min Estimated GFR () 108.8 Estimated GFR (Non- 93.9 BUN/Creatinine Ratio 13.8 (10-20) Calcium Level 9.3 mg/dl (8.5-10.1) Total Bilirubin 0.4 mg/dl (0.2-1) Direct Bilirubin < 0.1 mg/dl (0-0.2) Aspartate Amino Transf (AST/SGOT) 22 U/L (15-37) Alanine Aminotransferase (ALT/SGPT) 33 U/L (12-78) Alkaline Phosphatase 79 U/L (45-117) Total Protein 7.3 gm/dl (6.4-8.2) Albumin 3.8 gm/dl (3.4-5.0) Lipase 191 U/L (73-393) Human Chorionic Gonadotropin, Qual NEG (NEG) Laboratory studies as stated above per my review. Medications Administered Medications (Trade) Dose Ordered Sig/Nadiya Route Start Time Stop Time Status Last Admin Dose Admin Sodium Chloride 1,000 ml @ 999 mls/hr Q1H1M STAT IV 04/22/17 21:43 04/22/17 22:43 DC 04/22/17 22:06 999 MLS/HR Sodium Chloride 1,000 ml @ 200 mls/hr Q5H ONCE IV 04/22/17 21:43 04/22/17 23:46 DC 04/22/17 22:07 200 MLS/HR Doxycycline Hyclate (Vibramycin Cap) 100 mg ONE ONCE PO 04/22/17 23:30 04/22/17 23:31 DC 04/22/17 23:30 100 MG ED Course 7: Past medical records reviewed. The patient was evaluated in room B05, and a complete history and physical examination were performed. 2143: Ordered Sodium Chloride 1000 ml @ 200 mls/hr IV, Sodium Chloride 1000 ml @ 999 mls/hr IV 2249: I performed a pelvic exam in the presence of a female nurse telephone operator receptionist. Please refer to the physical exam for more information. 2319: I discussed the patients case with Jessica Cowan BARREL PAINTER. He suggested that the patient be given doxycycline and then sent home 2330: Ordered Vibramycin Cap 100mg PO 2333: Upon reevaluation, the patient is resting and in no distress. I discussed the results and treatment plan with her. She verbalized agreement of the treatment plan. The patient was discharged home. Medical Decision Differential diagnosis includes: UTI, , infection, post complications. Medication Reconciliation: I attest that I have personally reviewed the patient' s current medication list. Blood Pressure Screening: Patient was found to have a slightly elevated blood pressure due to circumstances. I do not believe that the patient requires hypertension monitoring. This patient comes in as described above. She's had some pelvic pain.. She is 3 months she's had no significant discharge. She looks well on exam her abdomen is benign. Blood work and urine was obtained a urinalysis does not suggest UTI with a backup culture pending. Her white count is mildly elevated. She has no acute electrolyte or metabolic abnormalities. She is not . On speculum exam, She has no significant discharge. She is minimally tender the cervix. I did discuss case with Dr. Summers recommends putting her on doxycycline for possible antibiotic coverage although I do not she likely has PID at this point. I did give her doxycycline here as well as a prescription for twice a day for 10 days and encouraged her to keep out of the sun light and keep covered as she is given be at risk to having sunburn. She should return if: increasing pain or bleeding, fever or chills, worsening of symptoms, any problems or concerns. She is happy with plan and discharged to home. Consults Time Called: 2313 Consulting Physician: Jessica Cowan BARREL PAINTER Returned Call: [phone] I discussed the patients case with Jessica Cowan BARREL PAINTER. He suggested that the patient be given doxycycline and then sent home Impression Primary Impression: Pelvic pain Scribe Attestation The scribe's documentation has been prepared under my direction and personally reviewed by me in its entirety. I confirm that the note above accurately reflects all work, treatment, procedures, and medical decision making performed by me. Departure Information Dispostion Home / Self-Care Prescriptions Doxycycline Hyclate (VIBRAMYCIN) 100 Mg Cap 100 MG PO BID for 10 Days, #20 CAP Prov: Sacha Cabrera M.D. 04/22/17 Referrals No Doctor, Assigned (PCP) Forms HOME CARE DOCUMENTATION FORM, IMPORTANT VISIT INFORMATION, WORK / SCHOOL INSTRUCTIONS Patient Instructions [facility] Additional Instructions Rest. Drink plenty of fluids. Return if: Increasing pain, worsening of symptoms, fever or chills, vaginal bleeding or discharge, any new problems or concerns Doxycycline 100 mg twice a day for 10 days. Keep covered when out in the sun as Doxy can make you more likely to have a sunburn Follow-up with BARREL PAINTER on Monday for recheck.
== END 2017-04-22 23:40 | disposition home or self-care (01) ==
LOC: C.EDB 21:22
DX: R10.2 Pelvic and perineal pain (principal); K21.9 Gastro-esophageal reflux disease without esophagitis; Z82.49 Family history of ischemic heart disease and other diseases of the circulatory system; F17.200 Nicotine dependence, unspecified, uncomplicated

== ENCOUNTER 2022-12-16 07:46 | Observation (INO) ==
--- NOTE | 2022-12-14 13:30 | Anesthesiology Consultation ---
Date of Service December 14, 2022 Assessment & Plan (1) Encounter for pre-operative examination: - COVID screening: No known COVID-19 positive contacts. Travel screen negative. Patient vaccinated. Covid positive (home test 11/25/22, [facility] PCR 11/29/22)- sinus/head congestion > resolved. Symptoms onset 11/25 with positive home test and confirmatory [facility] Covid positive testing 11/29. Called patient for update 12/14/22- she has had resolution in symptoms. Pt can proceed as scheduled without additional preop Covid testing or additional Covid contact precautions per protocol. - PCP office visit (11/24/22): "Preoperative assessment: Scheduled for discectomy on 12/09/22. Metabolic screening reviewed. ECG reviewed by me. Patient is within acceptable medical risk for her procedure. No issues at this time.. chronic low back pain with right-sided sciatica: Due to lumbar disc herniation causing lumbar radiculopathy. Pain not well controlled. We will start naproxen 500 mg twice daily. Patient was encouraged to take her tramadol during the day as needed but monitor for sedating effects. Patient is limited to desk duty at this time. Medication refilled. Follow-up as needed following her procedure." - Check test AM DOS Chart Review Chart Review: Acceptable Risk for Surgery and Patient NOT seen in Pre Admission Testing History Surgery Operation Date: 12/16/22 09:35 Proposed Procedures p L4-L5 Discectomy with Coflex - Taco Chung DO Height/Weight Height: 5 ft 8 in Weight: 117.934 kg Allergies Allergy/AdvReac Type Severity Reaction Status Date / Time metronidazole [From Flagyl] AdvReac Intermediate Rash Verified 12/16/22 08:14 Medications Home Medications Medication Instructions Recorded Confirmed Last Taken cyclobenzaprine 10 mg tablet 10 mg PO TID PRN muscle spasm #20 09/12/22 11/29/22 Unknown tabs pantoprazole 40 mg tablet,delayed 40 mg PO DAILY #30 tabs 09/14/22 12/16/22 12/15/22 08:00 release gabapentin 300 mg capsule 300 mg PO TID #90 caps 11/24/22 12/16/22 12/15/22 19:30 naproxen 500 mg tablet 500 mg PO BID PRN pain #60 tabs 11/24/22 12/16/22 12/15/22 08:00 clindamycin 1.2 % (1 % 1 applic topical BID #45 grams 12/07/22 Unknown base)-benzoyl peroxide 5 % topical gel tramadol 50 mg tablet 50 mg PO Q6H PRN pain #15 tabs 12/08/22 12/15/22 19:30 Active Medications Generic Name Dose Route Start Last Admin Trade Name Freq PRN Reason Stop Dose Admin Acetaminophen 1,000 mg 12/16/22 06:00 12/16/22 08:14 Acetaminophen 500 Mg Tab PO 12/16/22 18:00 1,000 mg PREOP DARRIAN Administration Celecoxib 200 mg 12/16/22 06:00 12/16/22 08:15 Celebrex 200 Mg Cap PO 12/16/22 18:00 200 mg PREOP DARRIAN Administration Gabapentin 900 mg 12/16/22 06:00 12/16/22 08:15 Gabapentin 900 Mg Dose PO 12/16/22 18:00 900 mg PREOP DARRIAN Administration Lactated Ringer's 1,000 mls @ 15 mls/hr 12/16/22 06:00 12/16/22 08:37 Lr IV 12/17/22 05:59 15 mls/hr .Q24H DARRIAN Administration Past Medical History Medical History Anxiety Chronic constipation COVID-19 Covid positive (home test 11/25/22, [facility] PCR 11/29/22)- sinus/head congestion > resolved Depression Gastroesophageal reflux disease Hx of ovarian cyst IBS (irritable bowel syndrome) Migraine without aura Past Family History Family History Grandmother (Paternal) Colorectal cancer Ovarian cancer Father Myocardial infarction Uncle Myocardial infarction Grandfather (Paternal) Myocardial infarction Mother Breast cancer, Onset Age: 56 DCIS Past Surgical History Surgical History History of colonoscopy History of esophagogastroduodenoscopy (EGD) Nausea and vomiting after administration of anesthetic agent S/P cholecystectomy S/P tonsillectomy S/P wisdom tooth extraction Social History Smoking Status: Former smoker tobacco type: cigarettes Smoking cigarettes per day: 7 Do You Dip or Chew Tobacco: No Smoking End Date: quit ~2020 Hx Alcohol Use: No alcohol intake frequency: a few times a month Hx Substance Use: No substance use type: does not use Physical Exam Vital Signs Last Vital Signs Temp 36.7 C 12/16/22 08:38 Pulse 76 12/16/22 08:38 Resp 20 12/16/22 08:38 BP 144/120 H 12/16/22 08:38 Pulse Ox 96 12/16/22 08:38 O2 Del Method 12/16/22 08:38 Lab Results Anesthesia Preop Results Results Anesthesia Widget: WBC 9.92 K/ul (4.8-10.8) 12/14/22 Hgb 14.2 g/dl (12.0-16.0) 12/14/22 Hct 40.7 % (37.0-47.0) 12/14/22 Plt 303 K/uL (130-400) 12/14/22 Na 138 mmol/L (136-145) 12/14/22 K 3.4 mmol/L (3.5-5.1) L 12/14/22 Cl 105 mmol/L (98-107) 12/14/22 CO2 26 mmol/L (21-32) 12/14/22 BUN 14 mg/dl (6-23) 12/14/22 Creat 0.60 mg/dl (0.6-1.2) 12/14/22 Glucose Level 88 mg/dl (70-99(Fasting)) 12/14/22 PT 10.6 Seconds (9.0-12.0) 12/14/22 PTT 27.4 Seconds (21.0-31.0) 12/14/22 INR 1.0 (0.9-1.1) 12/14/22 POC Ur Test NEG (NEG) 12/16/22 Urine Color Dark Yellow 12/14/22 Urine Appearance Cloudy (Clear) A 12/14/22 Urine pH 5.0 (4.5-7.5) 12/14/22 Urine Specific [place] 1.037 (1.000-1.030) H 12/14/22 Urine Protein Negative (Negative) 12/14/22 Urine Glucose (UA) Negative (Negative) 12/14/22 Urine Ketones Trace (Negative) H 12/14/22 Urine Blood Negative (Negative) 12/14/22 Urine Nitrite Positive (Negative) A 12/14/22 Urine Bilirubin 1+ (Negative) H 12/14/22 Urine Urobilinogen Negative (Negative) 12/14/22 Urine Leukocyte Esterase Trace (Negative) H 12/14/22 Urine WBC (Auto) 1-5 /hpf (0-5) 12/14/22 Urine RBC (Auto) 0-4 /hpf (0-4) 12/14/22 Urine Hyaline Casts (Auto) 1-5 /lpf (0-5) 12/14/22 Urine Epithelial Cells (Auto) >30 /lpf (0-5) H 12/14/22 Urine Bacteria (Auto) Negative (Negative) 12/14/22 Urine Amorphous Sediment BIZTALK ARCHITECT 12/14/22 Urine Yeast BIZTALK ARCHITECT 12/14/22 Blood Type B Positive 12/14/22 Antibody Screen NEGATIVE 12/14/22 Testing Laboratory Results 12/16/22 08:57 POC Ur Test NEG Electrocardiogram Date: 07/28/22 Findings: + NSR @ (81) Chest X-Ray Date: 07/28/22 Findings: + NAD
[~2022-12-16 07:46] MED LIST changes: +ACETAMINOPHEN 500 MG TAB PO SCH; +CeleBREX 200 MG CAP PO SCH; +GABAPENTIN 900 MG DOSE PO SCH; +LR 15ML/HR IV SCH; -MTR600X PO; -PANT40TA PO; -PRENTAB26 PO; +ceFAZolin 2000MG 2,000 MG/15 ML SYR IV SCH
[2022-12-16] MEDS ORDERED: ROCURONIUM BROMIDE 10 MG/ML 5 ML VIAL IV ONE (08:43)
[2022-12-16] MEDS ORDERED: ONDANSETRON INJ 2 MG/ML 2 ML VIAL ONE ×2 (08:43→10:10)
[2022-12-16] MEDS ORDERED: MIDAZOLAM HCL 1 MG/ML 2ML VIAL ONE (08:43)
[2022-12-16] MEDS ORDERED: fentaNYL citrate 100 MCG/2 ML VIAL ONE (08:43)
[2022-12-16] MEDS ORDERED: GLYCOPYRROLATE 0.2 MG/ML VIAL ONE (08:43)
[2022-12-16] MEDS ORDERED: LARYING-O-JET KIT (LTA) ONE (08:43)
[2022-12-16] MEDS ORDERED: NEOSTIGMINE METHYLSULFATE 1 MG/ML 10ML VIAL ONE (08:43)
[2022-12-16] MEDS ORDERED: LIDOCAINE 2% MPF LOCAL 5 ML VIAL INFIL ONE (08:43)
[2022-12-16] MEDS ORDERED: DEXAMETHASONE SOD INJ 4 MG/ML VIAL ONE (08:43)
[2022-12-16] MEDS ORDERED: PROPOFOL IV EMULSION 10 MG/ML 20 ML VIAL IV ONE (08:43)
[2022-12-16] MEDS ORDERED: HYDROmorphone INJ 2 MG/ML SYR/VIAL ONE (08:44)
[2022-12-16] MEDS ORDERED: SCOPOLAMINE 1 MG TDSY TD STA (09:08)
[2022-12-16] MEDS ORDERED: PROMETHAZINE HCL 12.5 MG in SODIUM CHLORIDE 0.9% 50 ML IV PRN ×2 (09:10→13:11)
[2022-12-16] MEDS ORDERED: ONDANSETRON INJ 2 MG/ML 2 ML VIAL IV PRN ×2 (09:10→13:11)
[2022-12-16] MEDS ORDERED: ATROPINE SULFATE 0.1 MG/ML 10ML SYR IV PRN (09:10)
[2022-12-16] MEDS ORDERED: ePHEDrine sulfate 50 MG/ML AMP IV PRN (09:10)
--- NOTE | 2022-12-16 09:10 | History & Physical Bridge Note ---
Date of Service December 16, 2022 History & Physical Bridge Note I have examined the patient, reviewed the History & Physical and in the interval since the performance of the History & Physical I have noted the following changes of clinical significance: no changes noted
--- NOTE | 2022-12-16 09:11 | History & Physical Report ---
Date of Service December 16, 2022 Assessment & Plan (1) Lumbar disc herniation with radiculopathy: Plan: L4-L5 discectomy with Coflex History of Present Illness Chief Complaint: Back and leg pain Primary Care Provider: Chino Sampson DO This is a 32-year-old female who presents with chronic persistent back and leg pain after failing course of nonoperative care she is here for surgical invention. Allergies Allergy/AdvReac Type Severity Reaction Status Date / Time metronidazole [From Flagyl] AdvReac Intermediate Rash Verified 12/16/22 08:14 Home Medications Medication Instructions Recorded Confirmed Type cyclobenzaprine 10 mg tablet 10 mg PO TID PRN muscle spasm #20 09/12/22 11/29/22 Rx tabs pantoprazole 40 mg tablet,delayed 40 mg PO DAILY #30 tabs 09/14/22 12/16/22 Rx release gabapentin 300 mg capsule 300 mg PO TID #90 caps 11/24/22 12/16/22 Rx naproxen 500 mg tablet 500 mg PO BID PRN pain #60 tabs 11/24/22 12/16/22 Rx clindamycin 1.2 % (1 % 1 applic topical BID #45 grams 12/07/22 Rx base)-benzoyl peroxide 5 % topical gel tramadol 50 mg tablet 50 mg PO Q6H PRN pain #15 tabs 12/08/22 Rx Past Med/Surg History Medical History Anxiety Chronic constipation COVID-19 Covid positive (home test 11/25/22, [facility] PCR 11/29/22)- sinus/head congestion > resolved Depression Gastroesophageal reflux disease Hx of ovarian cyst IBS (irritable bowel syndrome) Migraine without aura Surgical History History of colonoscopy History of esophagogastroduodenoscopy (EGD) Nausea and vomiting after administration of anesthetic agent S/P cholecystectomy S/P tonsillectomy S/P wisdom tooth extraction Family History Grandmother (Paternal) Colorectal cancer Ovarian cancer Father Myocardial infarction Uncle Myocardial infarction Grandfather (Paternal) Myocardial infarction Mother Breast cancer, Onset Age: 56 DCIS Social History Smoking Status: Former smoker Tobacco Type: Cigarettes Age Started Using Tobacco: 15; Age Quit Using Tobacco: 30; packs per day: 0.25; Cigarettes Per Day: 7; Smoking End Date: quit ~2020; Second Hand Exposure: No; Do You Dip or Chew Tobacco: No; Tobacco Cessation Education Requested by Patient: No Hx Alcohol Use: No Hx Substance Use: No Preferred Language: Macanese Communication Ability: Effective Visual Impairment: No Limitations Hearing Ability: Normal Manager Customer Required: No Beliefs That Will Affect Care: None marital status: Single marital status details: Lives with fiance and child Current Living Situation: Spouse and Family current occupational status: employed current occupation: PRODUCTION SUPPORT DEVELOPER Other Information That Helps Us Care for You: No Feels Safe at Home: Yes Safety Concerns: Feels Safe At This Time Childhood Exposure to Second-Hand Smoke: No Dental Care, Regularly: Yes Physical Activity Frequency: 5-6 Times per Week Seatbelt Use: always Sunscreen Use: Yes Assistive Devices: Glasses Physical Exam Physical Exam: Patient is alert and oriented Heart regular rhythm Lungs clear Results & Data Results & Data ([facility]) Vital Signs (Past 12 Hours) Vital Signs Temp Pulse Resp BP Pulse Ox O2 Del Method 12/16/22 08:38 36.7 C 76 20 144/120 H 96 Room Air
[2022-12-16] MEDS ORDERED: SCOPOLAMINE 1 MG TDSY TD ONE (09:23)
[2022-12-16] MEDS ORDERED: ceFAZolin 330 MG/ML 1 GM VIAL ONE (09:35)
[2022-12-16] MEDS ORDERED: BUPIVACAINE/EPINEPHRINE 0.5% MPF 1:200,000 30 ML VIAL ONE (09:35)
[2022-12-16] MEDS ORDERED: SUGAMMADEX SODIUM 200 MG/2 ML VIAL IV ONE (10:09)
--- NOTE | 2022-12-16 10:39 | Operative Report ---
Post Operative Report Pre & Post Diagnosis Operation Date: 12/16/22 09:35 Pre-Op Diagnosis: Lumbar disc herniation with radiculopathy Post-Op Diagnosis: Postop diagnosis: Same I identified the patient and participated in the time-out.: Yes Procedure Operation Date: 12/16/22 09:35 Actual Procedures #1 lumbar decompression with excision and removal of herniated fragment at L4-L5 . #2 placement of 14 mm Coflex interlaminar spacer. Surgeon Taco Chung, Safe Deposit Box Rental Clerk Varinder Vásquez Estimated Blood Loss 10 Findings See Below The patient is 5 foot 8 weighing over 118 kg with a BMI in excess of 39. Patient's body habitus did create significant technical difficulty required deepest retractors longer instruments in order to perform her procedure. This at least 50% increased operative time. Specimens None Indications This is a 32-year-old female who presents above-mentioned diagnosis after failing course of nonoperative care is here for surgical invention. Description of Procedure Patient was met with identified informed consent obtained. Patient was then taken to the operative suite underwent a patient placed in a prone position on the [place] table top Lonny frame. All bony prominences well-padded eyes inspected to ensure no external pressure placed upon them. This point the lumbar spine was prepped and draped in normal sterile fashion. Sharp dissection with the assistance of Bovie cautery was then performed down to and exposing the interlaminar space at L4-L5 bilaterally. A self-retaining tractors placed. Then performed a midline decompression excised the ligamentum flavum on the right and performed a medial facetectomy to expose a severely compressed traversing nerve root. Was the L5 was mobilized medially and massive disc herniation identified and removed without difficulty. The area was explored several times to ensure all these fragments addressed. It was then copiously irrigated. A 14 mm Coflex interlaminar space was then tapped in position and crimped into place. The incision was then irrigated 10 round HECTOR drain inserted. Was then closed with subcutaneous Vicryl and 4 Monocryl for fascial closure. Steri-Strip sterile dressings placed. Patient waken taken to PACU in stable condition. Please note Varinder Vásquez was present at the entire procedure and all the patient positioning complex portions of the surgery and final skin closure. I attest to the content of the Intraoperative Record and any orders documented therein. Any exceptions are noted below.
--- NOTE | 2022-12-16 11:00 | Fluoroscopy Report ---
FL lumbar spine 2-3V CLINICAL HISTORY: L4-L5 DISCECTOMY WITH COFLEX COMPARISON STUDY: MR lumbar spine 10/08/2022 FLUOROSCOPY TIME: 8.7 seconds FLUOROSCOPY IMAGES: 2 EXPOSURE DOSE: 5.70 mGy FINDINGS: A spacer device is noted between the L4 and L5 spinous processes. No acute fracture identif ied. No unexpected opaque foreign bodies are seen. IMPRESSION: Fluoroscopic assistance as above. ACT 112: Negative or not required by law. Electronically signed by: Mariusz Berrios M.D. 12/16/2022 10:59 AM
[2022-12-16] MEDS: HYDROmorphone INJ 2 MG/ML SYR/VIAL IV PRN ×2 (11:30→11:36)
--- NOTE | 2022-12-16 12:03 | Anesthesiology Progress Note ---
Date of Service December 16, 2022 Anesthesia Post Procedure Vital Signs Vital Signs: Temp Pulse Pulse Resp BP Pulse Ox O2 Del Method 12/16/22 12:00 83 12 131/90 94 Nasal Cannula 12/16/22 11:45 36.6 C 77 12 140/83 94 Nasal Cannula 12/16/22 11:35 80 14 126/88 92 Room Air 12/16/22 11:25 80 13 150/86 H 96 Room Air 12/16/22 11:15 79 14 141/78 H 95 Oxymask 12/16/22 11:05 75 14 129/76 99 Oxymask 12/16/22 10:57 36.1 C L 79 12 149/83 H 96 Oxymask 12/16/22 08:38 36.7 C 76 20 144/120 H 96 Room Air O2 Flow Rate 12/16/22 12:00 2 12/16/22 11:45 2 12/16/22 11:35 12/16/22 11:25 12/16/22 11:15 10 12/16/22 11:05 10 12/16/22 10:57 10 12/16/22 08:38 Pain Intensity Bilateral Back: Pain Intensity: 10 Back: Pain Intensity: 4 Transfer of Care Handoff Completed per policy Notes Mental Status: alert / awake / arousable and participated in evaluation Nausea / Vomiting: adequately controlled Pain: adequately controlled Airway Patency, RR, SpO2: stable & adequate BP & HR: stable & adequate Hydration State: stable & adequate Anesthetic Complications: no major complications apparent and Pt Satisfied with anesthetic care
[2022-12-16] MEDS ORDERED: diphenhydrAMINE Capsule 25 MG CAP PO PRN (13:11)
[2022-12-16] MEDS ORDERED: DO NOT ADMINISTER FLU VACCINE PRN (13:11)
[2022-12-16] MEDS ORDERED: METOCLOPRAMIDE HCL INJ 5 MG/ML 2 ML VIAL IV PRN (13:11)
[2022-12-16] MEDS ORDERED: ONDANSETRON 4 MG OD TAB PO PRN (13:11)
[2022-12-16] MEDS ORDERED: traMADol HCL 50 MG TABLET PO PRN (13:11)
[2022-12-16] MEDS ORDERED: ALUMINUM/MAGNESIUM SUSP 30 ML UDC PO PRN (13:11)
[2022-12-16] MEDS ORDERED: DO NOT ADMINISTER PNEUMOCOCCAL VACCINE PRN (13:11)
[2022-12-16] MEDS ORDERED: HYDROmorphone INJ 1 MG/ML SYRINGE IV PRN (13:11)
[2022-12-16] MEDS ORDERED: FAMOTIDINE 20 MG TAB PO PRN (13:11)
[2022-12-16] MEDS ORDERED: LORazepam 2 MG/1 ML VIAL IV PRN (13:11)
[2022-12-16] MEDS ORDERED: bisacodyL 10 MG SUPP PR PRN (13:11)
[2022-12-16] MEDS ORDERED: ACETAMINOPHEN 1,000 MG/100 ML VIAL IV PRN (13:11)
[2022-12-16] MEDS ORDERED: ACETAMINOPHEN 500 MG TAB PO PRN (13:11)
[2022-12-16] MEDS ORDERED: NALOXONE HCL 0.4 MG/1 ML VIAL/CARP IV PRN (13:11)
[2022-12-16] MEDS ORDERED: LORazepam 0.5 MG TAB PO PRN (13:11)
[2022-12-16] MEDS ORDERED: HYDROmorphone INJ 0.5 MG/0.5 ML SYR IV PRN (13:11)
[2022-12-16] MEDS ORDERED: hydrOXYzine HCl 25 MG TAB PO PRN (13:11)
[2022-12-16] MEDS ORDERED: MAGNESIUM HYDROXIDE SUSP 30 ML UDC PO PRN (13:11)
[2022-12-16] MEDS ORDERED: SOD PHOSPHATE/SOD BIPHOSPHATE ENEMA 132 ML BTL PR PRN (13:11)
[2022-12-16] MEDS: LACTATED RINGER'S 1,000 ML IV SCH ×2 (13:39→20:30)
[2022-12-16] MEDS: GABAPENTIN 300 MG CAP PO SCH ×2 (14:03→20:29)
[2022-12-16] MEDS: oxyCODONE HCL IR 5 MG TAB (IMMEDIATE RELEASE) PO PRN ×2 (14:06→20:33)
[2022-12-16] MEDS: CHECK SCOPOLAMINE PATCH PLACEMENT SCH (16:51)
[2022-12-16] MEDS: ceFAZolin 2000MG 2,000 MG/15 ML SYR IV SCH (17:34)
[2022-12-16] MEDS: DOCUSATE SODIUM/SENNA 50/8.6MG TAB PO SCH (20:29)
[2022-12-17] MEDS: CHECK SCOPOLAMINE PATCH PLACEMENT SCH ×3 (00:27→15:39)
[2022-12-17] MEDS: oxyCODONE HCL IR 5 MG TAB (IMMEDIATE RELEASE) PO PRN ×4 (00:59→15:39)
[2022-12-17] MEDS: ceFAZolin 2000MG 2,000 MG/15 ML SYR IV SCH (03:08)
[2022-12-17] MEDS: LACTATED RINGER'S 1,000 ML IV SCH (03:25)
[2022-12-17] MEDS: POLYETHYLENE (MIRALAX) 17 GM PACK PO SCH ×3 (05:36→17:37)
[2022-12-17] MEDS: GABAPENTIN 300 MG CAP PO SCH ×3 (08:34→19:57)
[2022-12-17] MEDS: PANTOprazole 40 MG TAB PO SCH (08:35)
[2022-12-17] MEDS: dexAMETHasone 6 MG in SYRINGE 0 ML IV SCH (09:04)
[2022-12-17 10:21] LABS: Appearance Urine Clear (Clear); Bacteria Urine Automated Negative (Negative); Bilirubin Urine Negative (Negative); Blood Urine 1+ (Negative); Cast Urine Automated 0 /lpf (0-5); Color Urine Yellow; Glucose Urine UA Negative (Negative); Ketones Urine Negative (Negative); Leukocyte Esterase Urine Negative (Negative); Nitrite Urine Negative (Negative); Protein Urine Negative (Negative); RBC Urine Automated 0-4 /hpf (0-4); Specific Gravity Urine 1.003 (1.000-1.030); Urobilinogen Urine Negative (Negative); pH Urine 6.5 (4.5-7.5)
--- NOTE | 2022-12-17 11:21 | Orthopedic Progress Note ---
Date of Service December 17, 2022 Assessment & Plan (1) Lumbar disc herniation with radiculopathy: Plan: At this time initiate a course of physical therapy monitor progress hopefully discharge home tomorrow. Admission and Anticipated Discharge Date Admission Date: December 16, 2022 Subjective Patient complaining of significant back pain. She states her leg pain is markedly improved. Physical Exam Physical Exam: On exam she is in bed. She is neurologically intact to testing lower extremities. She is in obvious distress when she tries to move secondary to back pain. Results & Data ([facility]) Vital Signs (Past 12 Hours) Vital Signs Temp Pulse Resp BP Pulse Ox O2 Del Method 12/17/22 07:39 36.7 C 68 16 111/66 95 Room Air 12/17/22 03:03 36.7 C 84 18 118/71 94 Room Air
[2022-12-17] MEDS: DOCUSATE SODIUM/SENNA 50/8.6MG TAB PO SCH (19:56)
[2022-12-18] MEDS: CHECK SCOPOLAMINE PATCH PLACEMENT SCH ×2 (00:14→07:58)
[2022-12-18] MEDS: oxyCODONE HCL IR 5 MG TAB (IMMEDIATE RELEASE) PO PRN ×3 (00:45→10:31)
[2022-12-18] MEDS: POLYETHYLENE (MIRALAX) 17 GM PACK PO SCH ×2 (00:45→05:26)
[2022-12-18] MEDS: GABAPENTIN 300 MG CAP PO SCH (07:57)
[2022-12-18] MEDS: PANTOprazole 40 MG TAB PO SCH (07:58)
[2022-12-18] MEDS: dexAMETHasone 6 MG in SYRINGE 0 ML IV SCH (07:58)
--- NOTE | 2022-12-18 10:56 | Discharge Summary ---
Date of Service December 18, 2022 Admission HPI Per Admitting Provider This is a 32-year-old female who presents with chronic persistent back and leg pain after failing course of nonoperative care she is here for surgical invention. Principal Diagnosis Lumbar disc herniation with radiculopathy Discharge Data Allergies Allergy/AdvReac Type Severity Reaction Status Date / Time metronidazole [From Flagyl] AdvReac Intermediate Rash Verified 12/16/22 08:14 Procedures Performed Operation Date: 12/16/22 09:35 Actual Procedures p L4-L5 Discectomy with Coflex(Not Applicable) - Taco Chung DO Ordered Studies 12/16/22 [place] lumbar spine 2-3V Routine Hospital Course (1) Lumbar disc herniation with radiculopathy: Patient 1 lumbar decompression with Coflex placement. She did well postoperatively 1 regarding the leg pain but had significant back pain. Physical therapy was initiated. She tolerates well on postop day #2 she was much more functional separately discharged home. Discharge orders instructions found in chart for further review. Total Time Total Time Spent Total Time Spent (In Minutes): 20 minutes Discharge Plan Discharge Items Patient Disposition: Home - Self-Care Reason For Visit: Intervertebral Disc Disorder with Radiculopathy Discharge Diagnosis: Lumbar disc herniation with radiculopathy Activity: As commented below Non-emergency contact: Primary Care Provider Call non-emergency contact if: you have any medication questions Follow-up/Referrals: Chino Sampson DO [Primary Care Provider] - Diet: Regular Addtl Attending Provider Instructions: ACTIVITY RECOMMENDATIONS: SELF CARE INSTRUCTIONS AFTER A LAMINECTOMY 1. No prolonged sitting (less than 30 minutes for the first 3 weeks after surgery). 2. No bending, lifting more than 5 pounds, or twisting (roll like a log when turning in bed). 3. You may shower 3 days after surgery if no drainage from wound. Thoroughly dry wound. Do not soak in the tub. 4. Please walk as much as you can for exercise. Gradually increase the distance that you walk as your endurance increases. 5. You may drive in 7-10 days if you are comfortable and no longer requiring pain medications. SPECIAL CARE INSTRUCTIONS: VERY IMPORTANT TO READ AND REVIEW A. Your surgical incision has been closed with a cosmetic suture under the skin that will dissolve in about 6 weeks. In 14 days, you can use a pair of clean scissors and cut the suture that is left outside of the skin at the ends of your incision. B. Complications are uncommon, but please contact us if you have any signs or symptoms of: 1. wound infection (fever higher than 102.5 degrees F, redness, separation of wound, drainage, or increasing pain from the incision) 2. blood clots in legs (pain, swelling, redness and warmth in legs) 3. urinary tract infection (fever higher than 102.5 degrees, burning upon urination or increased frequency of urination) 4. nerve problems (inability to walk on your toes or heels, numbness, loss of bowel or bladder control) 5. any other symptoms that concern you. C. Please call the office at if you have any concerns or questions about your operation or recovery. MANAGING PAIN AFTER SPINAL SURGERY 1. Narcotic medication is intended for short-term use and will be provided for surgical pain. Surgical pain usually lasts for a period of 4-6 weeks. Narcotic medication includes Percocet, Vicodin, Darvocet, Tylenol #3 or Lortab. 2. Longer-term pain is more appropriately treated with non-narcotic medication such as Tylenol ES. 3. Muscle spasm is not appropriately treated with narcotics. Muscle relaxers such as Soma, Flexeril or Skelaxin can be used along with Tylenol ES. 4. Remember that we all live with some "aches and pains". This is not unusual or uncommon after an injury or as we get older. 5. We will provide appropriate medication within the normal guidelines of their prescribed use. We will also be very cautious and aware of potential abuse and extended duration of patients' medication needs. 6. Please allow 2-3 days to process refills. Prescriptions will not be mailed but must be picked up at the office. FOLLOW UP VISIT: Keep your scheduled follow-up appointment. Any questions, please call the office at . Pending Studies at Discharge: No Stand-Alone Forms: My Appticles, Smoking Cessation Medications and DC Order Prescriptions: New tramadol 50 mg tablet 50 mg PO Q6H PRN (Reason: pain, moderate) Qty: 30 0RF oxycodone 5 mg tablet 5 mg PO Q6H PRN (Reason: pain, severe) Qty: 30 0RF Continued cyclobenzaprine 10 mg tablet 10 mg PO TID PRN (Reason: muscle spasm) Qty: 20 0RF clindamycin-benzoyl peroxide 1.2 %(1 % base) -5 % gel 1 applic topical BID Qty: 45 2RF Rx Instructions: Apply to face twice daily as directed. tramadol 50 mg tablet 50 mg PO Q6H PRN (Reason: pain) Qty: 15 0RF pantoprazole 40 mg tablet,delayed release (DR/EC) 40 mg PO DAILY Qty: 90 3RF naproxen 500 mg tablet 500 mg PO BID PRN (Reason: pain) Qty: 60 1RF gabapentin 300 mg capsule 300 mg PO TID Qty: 90 1RF Discharge Orders: Discharge Order (Routine); Ordered 12/18/22 Ordered By: Taco Chung Admission Data Admit Date/Time: 12/16/22 10:42 Attending Provider: Taco Chung Admit Provider: Taco Chung Primary Care Provider: Chino Sampson
== END 2022-12-18 11:36 | disposition home or self-care (01) ==
LOC: ASU 07:46 → 3E 07:46

== ENCOUNTER 2023-08-18 10:43 | Inpatient (IN) ==
--- NOTE | 2023-07-31 14:24 | PAT Medication Instructions ---
Medication Instructions Date of Service July 31, 2023 Home Medications Medication Instructions Recorded oxycodone 5 mg tablet 5 mg PO Q6H PRN pain, severe #30 12/17/22 tabs hydroxyzine HCl 25 mg tablet 25 mg PO TID PRN anxiety #30 tabs 01/04/23 naproxen 500 mg tablet 500 mg PO BID PRN pain #60 tabs 01/13/23 amoxicillin 875 mg-potassium 1 tab PO BID #14 tabs 07/26/23 clavulanate 125 mg tablet methylprednisolone 4 mg tablets in 4 mg PO .COMPLEX #21 ea 07/26/23 a dose pack (Medrol (Yariel)) oxycodone 5 mg tablet 5 mg PO Q6H PRN hydroxyzine HCl 25 mg tablet 25 mg PO TID PRN naproxen 500 mg tablet 500 mg PO BID PRN fluoxetine 40 mg capsule 40 mg PO QPM pantoprazole 40 mg tablet,delayed release 40 mg PO QAM amoxicillin 875 mg-potassium clavulanate 125 mg tablet 1 tab PO BID methylprednisolone 4 mg tablets in a dose pack (Medrol (Yariel)) 4 mg PO .COMPLEX Continue as directed amoxicillin 875 mg-potassium clavulanate 125 mg tablet 1 tab PO BID methylprednisolone 4 mg tablets in a dose pack (Medrol (Yariel)) 4 mg PO .COMPLEX ASK your surgeon for instructions naproxen 500 mg tablet 500 mg PO BID PRN Take morning of surgery With a small sip of water, OTHERWISE NOTHING TO EAT OR DRINK AFTER MIDNIGHT: oxycodone 5 mg tablet 5 mg PO Q6H PRN(if needed) hydroxyzine HCl 25 mg tablet 25 mg PO TID PRN(if needed) pantoprazole 40 mg tablet,delayed release 40 mg PO QAM Take evening before surgery oxycodone 5 mg tablet 5 mg PO Q6H PRN(if needed) hydroxyzine HCl 25 mg tablet 25 mg PO TID PRN(if needed) fluoxetine 40 mg capsule 40 mg PO QPM Other Notes If you have any questions please call us at [phone] or [phone] or [phone] or [phone]
--- NOTE | 2023-08-04 10:34 | Anesthesiology Consultation ---
Date of Service August 04, 2023 Assessment & Plan (1) Encounter for pre-operative examination: - check urine test STAT am DOS. - PONV: Pt reports good control with combination of scop patch and IV pre-dosing . Scopolamine patch ordered for am DOS, Rx of IV pre-dosing to assigned anesthesiologist determination am DOS. - awaiting surgeon ordered medical clearance. PAT testing to be faxed to PCP, Chino Sampson. Chart Review Chart Review: Pending: Refer to Additional Notes / Consult section and Patient seen in Pre Admission Testing Teaching & Discussion Pre-Anesthesia Teaching/Discussion Notes: Instructed NPO after midnight before surgery, except medications with 15 cc of water. Medication instructions provided according to the PAT guidelines. History Surgery Operation Date: 08/18/23 07:45 Proposed Procedures p L4-L5 Coflex Removal, L4-L5 Revision Decompression and Fusion, Spinal Cord Monitoring - Taco Chung, Height/Weight Height: 5 ft 8 in Weight: 105.9 kg Allergies Allergy/AdvReac Type Severity Reaction Status Date / Time metronidazole [From Flagyl] AdvReac Intermediate Rash Verified 07/27/23 08:36 Medications Home Medications Medication Instructions Recorded Confirmed Last Taken oxycodone 5 mg tablet 5 mg PO Q6H PRN pain, severe #30 12/17/22 07/27/23 Unknown tabs hydroxyzine HCl 25 mg tablet 25 mg PO TID PRN anxiety #30 tabs 01/04/23 07/27/23 Unknown naproxen 500 mg tablet 500 mg PO BID PRN pain #60 tabs 01/13/23 07/27/23 Unknown fluoxetine 40 mg capsule 40 mg PO QPM 02/21/23 07/27/23 Unknown pantoprazole 40 mg tablet,delayed 40 mg PO QAM 02/21/23 07/27/23 Unknown release amoxicillin 875 mg-potassium 1 tab PO BID #14 tabs 07/26/23 07/27/23 Unknown clavulanate 125 mg tablet methylprednisolone 4 mg tablets in 4 mg PO .COMPLEX #21 ea 07/26/23 07/27/23 Unknown a dose pack (Medrol (Yariel)) Past Medical History Medical History (Updated 08/04/23 @ 10:41 by Nancie Matthew PA-C) Anxiety Chronic constipation COVID-19 Covid positive (home test 11/25/22, [facility] PCR 11/29/22)- sinus/head congestion, "resolved" Depression Gastroesophageal reflux disease controlled, stable per pt Hx of ovarian cyst IBS (irritable bowel syndrome) Migraine without aura Sinus infection 2-3 weeks ago, completed Rx Augmentin and Medrol dosepak-symptoms resolved- home covid test negative Patient denies h/o stroke, seizures, heart attack, heart failure, DM, HTN, blood clots/DVTs or blood transfusions. Exercise / Class Metabolic Activity II 4-5 Yardwork/Stairs/Walk up hill (denies chest discomfort or shortness of breath with 1 FOS) Past Family History Family History Grandmother (Paternal) Colorectal cancer Ovarian cancer Father Myocardial infarction Uncle Myocardial infarction Grandfather (Paternal) Myocardial infarction Mother Breast cancer, Onset Age: 56 DCIS Past Surgical History Surgical History (Updated 08/04/23 @ 10:44 by Nancie Matthew PA-C) History of colonoscopy History of esophagogastroduodenoscopy (EGD) Hx of lumbar discectomy L4-L5 Discectomy with Coflex (12/16/22): Grade 1 view, MAC#3, ETT 7 at [facility] Nausea and vomiting after administration of anesthetic agent states typically receives scop patch and IV pre-dosing S/P cholecystectomy S/P tonsillectomy S/P wisdom tooth extraction Past Anesthesia History No Hx of Anesthesia Complications and No Family Hx of Anesthesia Complications History of PONV No Hx of Motion Sickness and History of PONV (pt states has received IV pre- dosing and scop patch in past, denies adverse effects with scop patch and states had no PONV with last spinal surgery) Social History Smoking Status: Former smoker tobacco type: cigarettes Smoking cigarettes per day: 7 Do You Dip or Chew Tobacco: No Smoking End Date: 2020 Hx Alcohol Use: Yes Alcohol type: wine alcohol intake frequency: holidays/special occasions only Hx Substance Use: No substance use type: does not use Review of Systems Patient denies chest pain, shortness of breath, dyspnea on exertion, snoring, witnessed apneas, fever, chills, cough, wheezing, or palpitations. Physical Exam Vital Signs Vitals BP 116/79 P 81 TEMP 98.7 SP02 97% on RA RESP 18 Physical Patient resting comfortably in chair in no acute distress, alert and oriented, responding appropriately throughout visit Full cervical extension range of motion without pain TMD 3.5 finger breadths Mallampati Score 1 Dentition: intact, denies chipped or loose teeth, caps/crowns, implants or bridges Lungs: normal respiratory effort. Good air movement, clear throughout to ausc ultation, no adventitious breath sounds Cardiac: regular rate and rhythm, no murmurs noted Carotid arteries: negative bruit bilat Lab Results Anesthesia Preop Results Results Anesthesia Widget: WBC 14.20 K/ul (4.8-10.8) H 08/04/23 Hgb 14.2 g/dl (12.0-16.0) 08/04/23 Hct 43.8 % (37.0-47.0) 08/04/23 Plt 379 K/uL (130-400) 08/04/23 Na 138 mmol/L (136-145) 08/04/23 K 3.8 mmol/L (3.5-5.1) 08/04/23 Cl 103 mmol/L (98-107) 08/04/23 CO2 26 mmol/L (21-32) 08/04/23 BUN 9 mg/dl (6-23) 08/04/23 Creat 0.83 mg/dl (0.6-1.2) 08/04/23 Glucose Level 73 mg/dl (70-99(Fasting)) 08/04/23 PT 10.8 Seconds (9.0-12.0) 08/04/23 PTT 27.4 Seconds (21.0-31.0) 08/04/23 INR 1.0 (0.9-1.1) 08/04/23 Urine Color Dark Yellow 08/04/23 Urine Appearance Cloudy (Clear) A 08/04/23 Urine pH 5.5 (4.5-7.5) 08/04/23 Urine Specific [place] 1.032 (1.000-1.030) H 08/04/23 Urine Protein Negative (Negative) 08/04/23 Urine Glucose (UA) Negative (Negative) 08/04/23 Urine Ketones Trace (Negative) H 08/04/23 Urine Blood 3+ (Negative) H 08/04/23 Urine Nitrite Negative (Negative) 08/04/23 Urine Bilirubin 1+ (Negative) H 08/04/23 Urine Urobilinogen Negative (Negative) 08/04/23 Urine Leukocyte Esterase Negative (Negative) 08/04/23 Urine WBC (Auto) 1-5 /hpf (0-5) 08/04/23 Urine RBC (Auto) 10-30 /hpf (0-4) H 08/04/23 Urine Hyaline Casts (Auto) 1-5 /lpf (0-5) 08/04/23 Urine Epithelial Cells (Auto) >30 /lpf (0-5) H 08/04/23 Urine Bacteria (Auto) Negative (Negative) 08/04/23 Blood Type B Positive 08/04/23 Antibody Screen NEGATIVE 08/04/23 Testing Laboratory Results Surgeon's office made aware of elevated WBC with left shift. Electrocardiogram Date: 08/04/23 NSR, rate 79 bpm Chest X-Ray Date: 08/04/23 No acute process
[~2023-08-18 10:43] MED LIST changes: +LR 60ML/HR IV SCH; +Scopolamine 1 MG TDSY TD SCH
[2023-08-18] MEDS ORDERED: SUGAMMADEX SODIUM 200 MG/2 ML VIAL IV ONE (11:13)
[2023-08-18] MEDS ORDERED: ROCURONIUM BROMIDE 10 MG/ML 5 ML VIAL IV ONE (11:13)
[2023-08-18] MEDS ORDERED: PROPOFOL IV EMULSION 10 MG/ML 20 ML VIAL IV ONE ×2 (11:13→14:16)
[2023-08-18] MEDS ORDERED: MIDAZOLAM HCL 1 MG/ML 2ML VIAL ONE (11:13)
[2023-08-18] MEDS ORDERED: DEXAMETHASONE SOD INJ 4 MG/ML VIAL ONE (11:13)
[2023-08-18] MEDS ORDERED: fentaNYL citrate PF 100 MCG/2 ML VIAL ONE ×2 (11:13→14:14)
[2023-08-18] MEDS ORDERED: LIDOCAINE 2% 2 ML VIAL/AMP(20MG/ML) INFIL ONE ×2 (11:13→11:16)
[2023-08-18] MEDS ORDERED: ONDANSETRON INJ 2 MG/ML 2 ML VIAL ONE (11:13)
[2023-08-18] MEDS ORDERED: ONDANSETRON INJ 2 MG/ML 2 ML VIAL IV PRN ×2 (11:35→15:45)
[2023-08-18] MEDS ORDERED: ePHEDrine sulfate 50 MG/ML AMP IV PRN (11:35)
[2023-08-18] MEDS ORDERED: HYDROmorphone INJ 2 MG/ML SYR/VIAL IV PRN (11:35)
[2023-08-18] MEDS ORDERED: PROMETHAZINE HCL 12.5 MG in SODIUM CHLORIDE 0.9% 50 ML IV PRN ×2 (11:35→15:45)
[2023-08-18] MEDS ORDERED: ATROPINE SULFATE 0.1 MG/ML 10ML SYR IV PRN (11:35)
--- NOTE | 2023-08-18 12:14 | History & Physical Bridge Note ---
Date of Service August 18, 2023 History & Physical Bridge Note I have examined the patient, reviewed the History & Physical and in the interval since the performance of the History & Physical I have noted the following changes of clinical significance: no changes noted
--- NOTE | 2023-08-18 12:15 | History & Physical Report ---
Date of Service August 18, 2023 Assessment & Plan (1) Recurrent herniation of lumbar disc: Plan: L4-L5 Coflex removal, L4-L5 revision decompression and fusion History of Present Illness Chief Complaint: Back and leg pain Primary Care Provider: Chino Sampson DO This is a 32-year-old female presents chronic system back and leg pain after failing nonoperative care she is here for surgical invention. Allergies Allergy/AdvReac Type Severity Reaction Status Date / Time metronidazole [From Flagyl] AdvReac Intermediate Rash Verified 08/18/23 11:12 Home Medications Medication Instructions Recorded Confirmed Type hydroxyzine HCl 25 mg tablet 25 mg PO TID PRN anxiety #30 tabs 01/04/23 08/10/23 Rx naproxen 500 mg tablet 500 mg PO BID PRN pain #60 tabs 01/13/23 08/10/23 Rx fluoxetine 40 mg capsule 40 mg PO QAM 02/21/23 08/18/23 History pantoprazole 40 mg tablet,delayed 40 mg PO QAM 02/21/23 08/18/23 History release buspirone 5 mg tablet 5 mg PO BID #60 tabs 08/14/23 Rx Past Med/Surg History Medical History (Updated 08/18/23 @ 12:15 by Taco Chung DO) Anxiety Chronic constipation COVID-19 Covid positive (home test 11/25/22, [facility] PCR 11/29/22)- sinus/head congestion, "resolved" Depression Gastroesophageal reflux disease controlled, stable per pt Hx of ovarian cyst IBS (irritable bowel syndrome) Migraine without aura Sinus infection 2-3 weeks ago, completed Rx Augmentin and Medrol dosepak-symptoms resolved- home covid test negative Surgical History History of colonoscopy History of esophagogastroduodenoscopy (EGD) Hx of lumbar discectomy Nausea and vomiting after administration of anesthetic agent S/P cholecystectomy S/P tonsillectomy S/P wisdom tooth extraction Family History Grandmother (Paternal) Colorectal cancer Ovarian cancer Father Myocardial infarction Uncle Myocardial infarction Grandfather (Paternal) Myocardial infarction Mother Breast cancer, Onset Age: 56 Social History Smoking Status: Former smoker Tobacco Type: Cigarettes Age Started Using Tobacco: 15; Age Quit Using Tobacco: 30; packs per day: 0.25; Cigarettes Per Day: 7; Smoking End Date: 2020; Second Hand Exposure: No; Do You Dip or Chew Tobacco: No; Tobacco Cessation Education Requested by Patient: No Hx Alcohol Use: Yes Alcohol type: wine Hx Substance Use: No Preferred Language: Tajik Communication Ability: Effective Visual Impairment: No Limitations Hearing Ability: Normal Band Cutter Required: No Beliefs That Will Affect Care: None marital status: Single marital status details: Lives with fiance and child Current Living Situation: Family current occupational status: employed current occupation: PROFESSIONAL ADVISOR Other Information That Helps Us Care for You: No Feels Safe at Home: Yes Safety Concerns: Feels Safe At This Time Childhood Exposure to Second-Hand Smoke: No Diet: regular Dental Care, Regularly: Yes Physical Activity Frequency: 5-6 Times per Week Seatbelt Use: always Sunscreen Use: Yes Assistive Devices: None Assistive Devices Comment: partial to top Physical Exam Physical Exam: Patient is alert and oriented Heart regular rhythm Lungs clear Results & Data Results & Data Vital Signs (Past 12 Hours) Vital Signs Temp Pulse Resp BP Pulse Ox O2 Del Method 08/18/23 11:17 36.9 C 87 16 125/84 98 Room Air
[2023-08-18] MEDS ORDERED: ceFAZolin 330 MG/ML 1 GM VIAL ONE (12:36)
[2023-08-18] MEDS ORDERED: BUPIVACAINE/EPINEPHRINE 0.25% 1:200,000 30 ML VIAL ONE (12:36)
[2023-08-18] MEDS ORDERED: FLOSEAL HEMOSTATIC MATRIX 10ML TOP ONE (13:14)
[2023-08-18] MEDS ORDERED: KETOROLAC 30 MG/ML VIAL ONE (13:57)
--- NOTE | 2023-08-18 14:27 | Operative Report ---
Post Operative Report Pre & Post Diagnosis Operation Date: 08/18/23 12:25 Pre-Op Diagnosis: Recurrent lumbar disc herniation L4-5 Post-Op Diagnosis: Same I identified the patient and participated in the time-out.: Yes Procedure Operation Date: 08/18/23 12:25 Actual Procedures #1 removal of posterior intralaminar construct. #2 revision decompression with bilateral medial facetectomies and foraminotomies L4-5. #3 posterior spinal fusion L4-5 #4 interbody fusion L4-5 #5 placement Spira 14 x 26 mm at L4-5. #6 placement of locally harvested morselized autograft and posterior gutters. #7 placement of I factor in the interbody space and infuse collagen sponge combined with V toss in the posterior lateral gutters. Surgeon Taco Chung, DO Customer Experience Manager None Estimated Blood Loss 100 Findings See Below Patient is 5 foot 8 weighing over 106 kg with a BMI in excess of 35. Patient's body habitus did contribute to significant technical difficulty required deeper retractors and longer instruments in order to perform procedure. This at least 50% increased operative time. Specimens None Indications This is a 32-year-old female presents above-mentioned diagnosis after failed course of nonoperative care she is here for surgical invention. Description of Procedure Patient was met with identified informed consent obtained. Patient was then taken to the operative suite underwent ablation placed in a prone position the [place] table top Lonny frame. All bony promises well-padded eyes inspected to ensure no external pressure placed upon the. This point the lumbar spine was prepped and draped in a sterile fashion. Sharp dissection with assistance of Bovie cautery form down to and exposing the remaining lamina transverse processes of L4-5 bilaterally. Then proceeded to remove the interlaminar Coflex construct. Then performed a revision complete laminectomy of L4 including bilaterally facetectomies and foraminotomies addressing all neural compression. Pedicle screws then placed in L4-L5 bilaterally with assistance of fluoroscopy and appropriately sized siva placed. By way of transforaminal approach on the right complete discectomy of L4-5 was performed endplates corrected to subcortical bleeding bone and a 14 x 26 mm Spira cage with I factor tapped in position. The rods then compressed locked in final position bilaterally. The transverse processes of L4-L5 burred to subcortical bleeding bone. Infuse collagen sponge combined with V toss placed in the posterior gutters combined with locally harvested morselized autograft. 15 round HECTOR drain was then inserted. The incision was then closed with 1 Vicryl to fascia 2-0 Vicryl subcutaneously and 4 Monocryl for final skin closure. Steri-Strips sterile dressing placed. Patient waken taken PACU stable condition. Please note spinal cord monitoring was utilized at the procedure no changes noted. I attest to the content of the Intraoperative Record and any orders documented therein. Any exceptions are noted below.
[2023-08-18] MEDS: fentaNYL citrate PF 100 MCG/2 ML VIAL IV PRN ×3 (14:40→14:50)
[2023-08-18] MEDS ORDERED: DO NOT ADMINISTER PNEUMOCOCCAL VACCINE PRN (15:45)
[2023-08-18] MEDS ORDERED: bisacodyL 10 MG SUPP PR PRN (15:45)
[2023-08-18] MEDS ORDERED: FAMOTIDINE 20 MG TAB PO PRN (15:45)
[2023-08-18] MEDS ORDERED: ALUMINUM/MAGNESIUM SUSP 30 ML UDC PO PRN (15:45)
[2023-08-18] MEDS ORDERED: METOCLOPRAMIDE HCL INJ 5 MG/ML 2 ML VIAL IV PRN (15:45)
[2023-08-18] MEDS ORDERED: ONDANSETRON 4 MG OD TAB PO PRN (15:45)
[2023-08-18] MEDS ORDERED: NALOXONE HCL 0.4 MG/1 ML VIAL/CARP IV PRN (15:45)
[2023-08-18] MEDS ORDERED: hydrOXYzine HCl 25 MG TAB PO PRN ×2 (15:45)
[2023-08-18] MEDS ORDERED: SOD PHOSPHATE/SOD BIPHOSPHATE ENEMA 132 ML BTL PR PRN (15:45)
[2023-08-18] MEDS ORDERED: ACETAMINOPHEN 1,000 MG/100 ML VIAL IV PRN (15:45)
[2023-08-18] MEDS ORDERED: HYDROmorphone INJ 0.5 MG/0.5 ML SYR IV PRN (15:45)
[2023-08-18] MEDS ORDERED: DO NOT ADMINISTER FLU VACCINE PRN (15:45)
[2023-08-18] MEDS ORDERED: MAGNESIUM HYDROXIDE SUSP 30 ML UDC PO PRN (15:45)
[2023-08-18] MEDS ORDERED: diphenhydrAMINE Capsule 25 MG CAP PO PRN (15:45)
[2023-08-18] MEDS ORDERED: LORazepam 0.5 MG TAB PO PRN (15:45)
--- NOTE | 2023-08-18 16:15 | Anesthesiology Progress Note ---
Date of Service August 18, 2023 Anesthesia Post Procedure Vital Signs Vital Signs: Temp Pulse Pulse Resp BP BP Pulse Ox 08/18/23 16:03 85 16 115/73 97 08/18/23 15:30 37.1 C 90 16 116/73 98 08/18/23 15:20 37.1 C 91 H 12 114/67 98 08/18/23 15:10 105 H 12 121/75 99 08/18/23 14:50 87 13 126/68 99 08/18/23 15:00 91 H 13 112/70 97 08/18/23 14:40 99 H 15 134/78 99 08/18/23 14:33 36.3 C L 103 H 17 139/85 95 08/18/23 11:17 36.9 C 87 16 125/84 98 O2 Del Method O2 Flow Rate 08/18/23 16:03 Room Air 08/18/23 15:30 Room Air 08/18/23 15:20 Nasal Cannula 3 08/18/23 15:10 Nasal Cannula 3 08/18/23 14:50 Nasal Cannula 3 08/18/23 15:00 Nasal Cannula 3 08/18/23 14:40 Nasal Cannula 3 08/18/23 14:33 Oxymask 4 08/18/23 11:17 Room Air Pain Intensity Lower Back: Pain Intensity: 7 Transfer of Care Handoff Completed per policy Notes Mental Status: alert / awake / arousable and participated in evaluation Patient Amnestic to Procedure: Yes Nausea / Vomiting: adequately controlled Pain: adequately controlled Airway Patency, RR, SpO2: stable & adequate BP & HR: stable & adequate Hydration State: stable & adequate Anesthetic Complications: no major complications apparent
[2023-08-18] MEDS: Scopolamine CHECK PATCH PLACEMENT SCH (17:14)
[2023-08-18] MEDS: LACTATED RINGER'S 1,000 ML IV SCH ×2 (17:14→23:31)
--- NOTE | 2023-08-18 17:43 | Fluoroscopy Report ---
[place] lumbar spine 2-3V CLINICAL HISTORY: L4-L5 DECOMPRESSION AND FUSION COMPARISON STUDY: Lumbar spine MRI 07/07/2023. FLUOROSCOPY TIME: 15 second FLUOROSCOPY IMAGES: 2 Ka,r: 12.2 mGy FINDINGS: Posterior decompression and fusion at L4-5 with pedicle screws and rods. The hardware appea rs intact. Disc spacers in place. IMPRESSION: Fluoroscopic assistance as above. ACT 112: Negative or not required by law. Electronically signed by: Hari Brock M.D. 08/18/2023 5:41 PM
[2023-08-18] MEDS: oxyCODONE HCL IR 5 MG TAB (IMMEDIATE RELEASE) PO PRN (18:09)
[2023-08-18] MEDS: LORazepam 2 MG/1 ML VIAL IV PRN (21:25)
[2023-08-18] MEDS: ceFAZolin 2000MG 2,000 MG/15 ML SYR IV SCH (21:26)
[2023-08-18] MEDS: DOCUSATE SODIUM/SENNA 50/8.6MG TAB PO SCH (21:26)
[2023-08-18] MEDS: HYDROmorphone INJ 1 MG/ML SYRINGE IV PRN (23:26)
[2023-08-18] MEDS: busPIRone 5 MG TAB PO SCH (23:27)
[2023-08-19] MEDS: oxyCODONE HCL IR 5 MG TAB (IMMEDIATE RELEASE) PO PRN ×3 (03:13→16:16)
[2023-08-19] MEDS: ceFAZolin 2000MG 2,000 MG/15 ML SYR IV SCH (04:33)
[2023-08-19] MEDS: Scopolamine CHECK PATCH PLACEMENT SCH ×3 (04:34→16:13)
[2023-08-19] MEDS: HYDROmorphone INJ 1 MG/ML SYRINGE IV PRN (06:01)
[2023-08-19 06:02] LABS: Basophils # (auto) 0.04 K/uL (0.00-0.20); Basophils % (auto) 0.2 %; Eosinophils # (auto) 0.01 K/uL (0.00-0.50); Eosinophils % (auto) 0.1 %; Hematocrit (blood only) 35.9 % (37.0-47.0); Hemoglobin 11.8 g/dl (12.0-16.0); Immature Granulocytes # (auto) 0.11 K/uL (0.01-0.20); Immature Granulocytes % (auto) 0.6 %; Lymphocytes % (auto) 9.2 %; Mean Corpuscular Hemoglobin 26.8 pg (25.0-34.0); Mean Corpuscular Hgb Conc 32.9 g/dL (32.0-36.0); Mean Corpuscular Volume 81.4 fL (80.0-100.0); Mean Platelet Volume 10.5 fL (9.4-12.4); Monocytes # (auto) 1.38 K/uL (0.11-0.59); Neutrophils # (auto) 16.31 K/uL (1.40-6.50); Neutrophils % (auto) 82.9 %; Platelet Count 316 K/uL (130-400); RDW Coefficient of Variation 14.2 % (11.5-14.5); RDW Standard Deviation 42.1 fL (36.4-46.3); Red Blood Count 4.41 M/uL (4.20-5.40); White Blood Count 19.65 K/ul (4.8-10.8)
[2023-08-19] MEDS: POLYETHYLENE (MIRALAX) 17 GM PACK PO SCH ×3 (06:14→17:56)
[2023-08-19 06:19] LABS: BUN Creatinine Ratio 9.9 (10-20); Calcium 8.6 mg/dl (8.6-10.3); Creatinine Clr Calc Pharmacy 143.9 ml/min; Est GFR (African American) 129.7 ml/min; Est GFR (Non-African American) 111.9 ml/min; Potassium 3.9 mmol/L (3.5-5.1)
[2023-08-19] MEDS: PANTOprazole 40 MG TAB PO SCH (07:53)
[2023-08-19] MEDS: busPIRone 5 MG TAB PO SCH ×2 (07:53→19:51)
[2023-08-19] MEDS: FLUoxetine HCL 20 MG CAP PO SCH (07:53)
[2023-08-19] MEDS: dexAMETHasone 6 MG in SYRINGE 0 ML IV SCH (07:53)
[2023-08-19] MEDS: traMADol HCL 50 MG TABLET PO PRN (07:55)
--- NOTE | 2023-08-19 10:14 | Orthopedic Progress Note ---
Date of Service August 19, 2023 Assessment & Plan (1) Recurrent herniation of lumbar disc: Plan: This time we will manage her pain the best of our abilities. I did explain to the patient she seems to have difficulty with pain control postoperatively. She understands. We will initiate physical therapy and ambulation as tolerated. Hopefully discharge home the next few days. Admission and Anticipated Discharge Date Admission Date: August 18, 2023 Subjective Patient complaining mostly of back pain. Her leg pain is controlled. Physical Exam Physical Exam: On exam patient is currently in bed. She has good strength testing lower extremities. Results & Data Vital Signs (Past 12 Hours) Vital Signs Temp Pulse Resp BP Pulse Ox O2 Del Method 08/19/23 07:54 37.4 C 65 16 105/67 97 Room Air 08/19/23 03:17 36.8 C 65 16 111/72 96 Room Air 08/18/23 23:28 37.3 C 79 18 98/61 L 97 Room Air Queries Orthopedic Spine Obesity: Yes
[2023-08-19] MEDS: KETOROLAC 30 MG/ML VIAL IV PRN ×2 (12:31→19:50)
--- NOTE | 2023-08-19 18:17 | Ultrasound Report ---
US venous doppler LE LT CLINICAL HISTORY: c/o calf pain r/o dvt TECHNIQUE: Left lower extremity real-time compression venous ultrasound with Color Doppler imaging. U tilizing real-time ultrasonic imaging multiple real time high-resolution ultrasonic images with compr ession and noncompression maneuvers of the deep venous system in addition to color doppler imaging we re performed from the common femoral vein through the proximal calf veins. COMPARISON: None available at the time of this dictation. FINDINGS/IMPRESSION: Currently there is normal compressibility of the deep venous system from the common femoral vein thro ugh the proximal calf veins. No superficial venous thrombosis is identified. ACT 112: Negative or not required by law. Electronically signed by: Refugio Kelly M.D. 08/19/2023 6:16 PM
[2023-08-19] MEDS: LORazepam 2 MG/1 ML VIAL IV PRN (19:50)
[2023-08-19] MEDS: DOCUSATE SODIUM/SENNA 50/8.6MG TAB PO SCH (19:51)
[2023-08-20] MEDS: POLYETHYLENE (MIRALAX) 17 GM PACK PO SCH ×4 (00:40→17:00)
[2023-08-20] MEDS: oxyCODONE HCL IR 5 MG TAB (IMMEDIATE RELEASE) PO PRN ×4 (01:09→15:15)
[2023-08-20] MEDS: ACETAMINOPHEN 500 MG TAB PO PRN (01:09)
[2023-08-20] MEDS: Scopolamine CHECK PATCH PLACEMENT SCH ×3 (01:12→16:09)
[2023-08-20] MEDS: KETOROLAC 30 MG/ML VIAL IV PRN ×2 (04:39→19:47)
[2023-08-20] MEDS: traMADol HCL 50 MG TABLET PO PRN ×2 (06:37→19:48)
[2023-08-20] MEDS: busPIRone 5 MG TAB PO SCH ×2 (07:48→21:01)
[2023-08-20] MEDS: dexAMETHasone 6 MG in SYRINGE 0 ML IV SCH (07:48)
[2023-08-20] MEDS: FLUoxetine HCL 20 MG CAP PO SCH (07:49)
[2023-08-20] MEDS: PANTOprazole 40 MG TAB PO SCH (07:49)
--- NOTE | 2023-08-20 11:25 | Orthopedic Progress Note ---
Date of Service August 20, 2023 Assessment & Plan (1) Recurrent herniation of lumbar disc: Plan: This time continue physical therapy monitor her HECTOR output anticipate discharge home tomorrow. Admission and Anticipated Discharge Date Admission Date: August 18, 2023 Subjective Patient's back pain is controlled. She has been ambulating the halls. Physical Exam Physical Exam: Patient is currently bed. She appears comfortable. Is constricted testing. Results & Data Vital Signs (Past 12 Hours) Vital Signs Temp Pulse Resp BP Pulse Ox O2 Del Method 08/20/23 06:35 37.2 C 66 18 111/57 L 96 Room Air Queries Orthopedic Spine Obesity: Yes
[2023-08-20] MEDS: DOCUSATE SODIUM/SENNA 50/8.6MG TAB PO SCH (21:00)
[2023-08-20] MEDS: LORazepam 2 MG/1 ML VIAL IV PRN (21:01)
[2023-08-21] MEDS: POLYETHYLENE (MIRALAX) 17 GM PACK PO SCH ×3 (00:36→11:05)
[2023-08-21] MEDS: oxyCODONE HCL IR 5 MG TAB (IMMEDIATE RELEASE) PO PRN ×2 (00:50→08:33)
[2023-08-21] MEDS: ACETAMINOPHEN 500 MG TAB PO PRN ×2 (00:51→11:09)
[2023-08-21] MEDS: Scopolamine CHECK PATCH PLACEMENT SCH (00:51)
[2023-08-21] MEDS: traMADol HCL 50 MG TABLET PO PRN (03:43)
[2023-08-21] MEDS: dexAMETHasone 6 MG in SYRINGE 0 ML IV SCH (08:25)
[2023-08-21] MEDS: PANTOprazole 40 MG TAB PO SCH (08:26)
[2023-08-21] MEDS: FLUoxetine HCL 20 MG CAP PO SCH (08:26)
[2023-08-21] MEDS: busPIRone 5 MG TAB PO SCH (08:26)
--- NOTE | 2023-08-21 10:27 | Discharge Summary ---
Date of Service August 21, 2023 Admission HPI Per Admitting Provider This is a 32-year-old female presents chronic system back and leg pain after failing nonoperative care she is here for surgical invention. Principal Diagnosis Recurrent lumbar disc fusion Discharge Data Allergies Allergy/AdvReac Type Severity Reaction Status Date / Time metronidazole [From Flagyl] AdvReac Intermediate Rash Verified 08/18/23 11:12 Procedures Performed Operation Date: 08/18/23 12:25 Actual Procedures p L4-L5 Revision Decompression and Fusion, Spinal Cord Monitoring(Not Applicable) - Taco Chung DO s L4-L5 Coflex Removal, (Not Applicable) - Taco Chung DO Ordered Studies 08/18/23 12:25 FL lumbar spine 2-3V Routine 08/19/23 17:22 US venous doppler LE LT Urgent Hospital Course (1) Recurrent herniation of lumbar disc: Patient revision decompression fusion tolerated as well as taken orthopedic for postoperative. Postop place progressed appropriately. Pain well controlled. HECTOR drain decreasing appropriate. Excellent strength testing. Separately discharged home. Discharge orders instructions found in chart for further review. Total Time Total Time Spent Total Time Spent (In Minutes): 20 minutes Discharge Plan Discharge Items Patient Disposition: Home - Self-Care Reason For Visit: Lumbar Region Other Intervertebral Disc Displaceme Discharge Diagnosis: Recurrent lumbar disc herniation Activity: As commented below Non-emergency contact: Primary Care Provider Call non-emergency contact if: you have any medication questions Follow-up/Referrals: Chino Sampson DO [Primary Care Provider] - Diet: Regular Addtl Attending Provider Instructions: ACTIVITY RECOMMENDATIONS: SELF CARE INSTRUCTIONS AFTER THORACIC/LUMBAR FUSIONS 1. You may walk to your tolerance. It is good exercise for your legs and back. Expect some back and intermittent leg aches and pains. 2. You may perform "counter-top" level activities (make a sandwich, mariangel with a project, etc.). 3. No bending or lifting of more than 10 pounds or back twisting of any nature (roll like a log when turning in bed). 4. You may ride in a car for 20-30 minutes at a time. No driving until after your first visit with your doctor. 5. Frequent changes of position and restricting sitting to 30 minutes at a time will help limit the amount of back spasms and stiffness you may experience. 6. You may discontinue the use of ambulatory aids (cane, crutches, etc.) once your strength and confidence allow. 7. You may business analytics intern the shower and let water strike your incision when you arrive home at least once daily. Do not take a tub bath, sit in a hot tub or go into a swimming pool until after your first recheck in the office. SPECIAL CARE INSTRUCTIONS: VERY IMPORTANT TO READ AND REVIEW A. Your surgical incision has been closed with a cosmetic suture under the skin that will dissolve in about 6 weeks. In 14 days, you can use a pair of clean scissors and cut the suture that is left outside of the skin at the ends of your incision. 1. The small skin tapes can be removed 7 days after surgery if they have not fallen off by that point. 2. You may keep the wound open to air as much as possible to promote healing after post-op day number 5 unless told otherwise by your doctor. 3. If you think the wound looks like it is becoming infected (redness or worsening drainage) and/or you are experiencing fever, chill or worsening back pain and muscle spasms, contact the office so that we may evaluate you as soon as possible. B. Complications are uncommon, but please contact us if you have any signs or symptoms of: 1. wound infection (fever higher than 102.5 degrees F, redness, separation of wound, drainage, or increasing pain from the incision) 2. blood clots in legs (pain, swelling, redness and warmth in legs) 3. urinary tract infection (fever higher than 102.5 degrees F, burning upon urination or increased frequency of urination) 4. nerve problems (inability to walk on your toes or heels, numbness, loss of bowel or bladder control) 5. any other symptoms that concern you C. Please call the office at if you have any concerns or questions about your operation or recovery. D. No smoking! Smoking drastically decreases the chance of a solid fusion. E. Do not take any anti-inflammatory medications (Indocin, Advil, Motrin, Aspirin, Naprosyn, etc.) as these may inhibit the chance of a solid fusion. Tylenol is okay to take for pain. MANAGING PAIN AFTER SPINAL SURGERY 1. Narcotic medication is intended for short-term use and will be provided for surgical pain. Surgical pain usually lasts for a period of 4-6 weeks. Narcotic medication includes Percocet, Vicodin, Darvocet, Tylenol #3 or Lortab. 2. Longer-term pain is more appropriately treated with non-narcotic medication such as Tylenol ES. 3. Muscle spasm is not appropriately treated with narcotics. Muscle relaxers such as Soma, Flexeril or Skelaxin can be used along with Tylenol ES. 4. Remember that we all live with some "aches and pains". This is not unusual or uncommon after an injury or as we get older. a. Back pain is expected and may include muscle spasms for 4 to 6 weeks after surgery. The pain should gradually improve. If the pain worsens for no apparent reason, please contact the office. b. Intermittent leg pain may also be experienced and should not be concerned about unless it worsens for no apparent reason. If so, please contact the office. 5. We will provide appropriate medication within the normal guidelines of their prescribed use. We will also be very cautious and aware of potential abuse and extended duration of patients' medication needs. a. Pain medications are for your comfort and to assist with sleep and rest so that the tissue can heal. They are not provided in order to return to normal activity and should not be used through the day. To do so or worsening pain at night can result from ongoing tissue damage and development of tolerance to the prescribed medicine. 6. Please allow 2-3 days to process refills. Prescriptions will not be mailed but must be picked up at the office. FOLLOW UP VISIT: Keep your scheduled follow-up appointment. Any questions, please call the office at . Pending Studies at Discharge: No Stand-Alone Forms: [facility] [place], Smoking Cessation Medications and DC Order Prescriptions: New tramadol 50 mg tablet 50 mg PO Q6H PRN (Reason: pain, moderate) Qty: 30 0RF oxycodone 5 mg tablet 5 mg PO Q6H PRN (Reason: pain) Qty: 30 0RF ondansetron 4 mg tablet,disintegrating 4 mg PO Q6H PRN (Reason: nausea and vomiting) Qty: 30 0RF lorazepam [Ativan] 1 mg tablet 1 mg PO DAILY PRN (Reason: anxiety) Qty: 14 0RF Continued naproxen 500 mg tablet 500 mg PO BID PRN (Reason: pain) Qty: 60 1RF buspirone 5 mg tablet 5 mg PO BID Qty: 60 2RF hydroxyzine HCl 25 mg tablet 25 mg PO TID PRN (Reason: anxiety) Qty: 30 2RF fluoxetine 40 mg capsule 40 mg PO QAM pantoprazole 40 mg tablet,delayed release (DR/EC) 40 mg PO QAM Discharge Orders: Discharge Order (Routine); Ordered 08/21/23 Ordered By: Taco Chung Admission Data Admit Date/Time: 08/18/23 14:30 Attending Provider: Taco Chung Admit Provider: Taco Chung Primary Care Provider: Chino Sampson
== END 2023-08-21 13:31 | disposition home or self-care (01) | DRG 455 ==
LOC: ASU 10:43 → 3E 14:30